=== PATIENT | male | born 1960 | race Caucasian/White ===

== ENCOUNTER 2018-08-24 06:45 | Inpatient (IN) ==
[2018-08-24] MEDS ORDERED: Sod Chloride 0.9% Inj 1,000 ML IV.SIG ONE (07:22)
--- NOTE | 2018-08-24 07:28 | ED ---
HPI General Chief Complaint: Abdominal Pain Stated Complaint: poss fever, abd pain Time Seen by Provider: 08/24/18 07:13 Source: patient Mode of arrival: ambulatory Limitations: no limitations History of Present Illness HPI narrative: The patient is a 58-year-old male with no past medical history presented with complaint of lower abdominal pain that started 4 days ago. MD complaint: Reports abdominal pain Onset (ago): day(s) (4) Pain Consistency: constant Location: Reports LLQ, RLQ and suprapubic Severity: mild Severity scale (1-10): 4 Quality: Reports aching Radiation: Reports none Migration to: Reports LLQ and RLQ Relieving factors: nothing Exacerbating factors: bowel movement Context: Denies foreign travel, possible food poisoning, sick contacts, recent antibiotic use, recent surgery/procedure, recent injury and history of similar episodes Associated symptoms: Reports nausea, diarrhea and chills; Denies vomiting, fever , constipation, dysuria, hematemesis, hematochezia, melena, hematuria, anorexia and syncope Related Data Home Medications Medication Instructions Recorded Confirmed No Known Home Medications 08/24/18 08/24/18 Allergies Allergy/AdvReac Type Severity Reaction Status Date / Time No Known Allergies Allergy Verified 08/24/18 07:21 Review of Systems ROS: all other systems reviewed are negative [facility] Medical History Medical History Patient denies medical problems (Acute) Surgical History Surgical History No history of previous surgery (Acute) Social History Social History Substance History: No History of Abuse Second Hand Smoke Exposure: No Smoking Status: Never smoker How Often Do You Have a Drink Containing Alcohol: Never Recent Travel in [facility] within the Last 8 Weeks: No Recent Out of Country Travel within the Last 8 Weeks: No Immunization History Tetanus Immunization: Unsure Exam Narrative Exam Narrative: GENERAL: Alert and oriented in no distress. Well-nourished well -developed SKIN: Focused skin assessment warm/dry. HEAD: Atraumatic. Normocephalic. EYES: Pupils equal and round. No scleral icterus. No injection or drainage. ENT: No nasal bleeding or discharge. Mucous membranes pink and moist. NECK: Trachea midline. No JVD. CARDIOVASCULAR: Regular rate and rhythm. No murmur appreciated. RESPIRATORY: No accessory muscle use. Clear to auscultation. Breath sounds equal bilaterally. GASTROINTESTINAL: Abdomen soft with tenderness to palpation over the left lower quadrant and right lower quadrant. Rebound tenderness on the right lower quadrant. Voluntary guarding. Normal bowel sounds., nondistended. Hepatic and splenic margins not palpable. MUSCULOSKELETAL: No obvious deformities. No clubbing. No cyanosis. No edema. NEUROLOGICAL: Awake and alert. No obvious cranial nerve deficits. Motor grossly within normal limits. Normal speech. PSYCHIATRIC: Appropriate mood and affect; insight and judgment normal. Course Initial Documented Vital Signs Temperature 98.5 F 08/24/18 07:00 Pulse Rate 109 H 08/24/18 07:00 Respiratory Rate 22 08/24/18 07:00 Blood Pressure 148/98 H 08/24/18 07:00 Pulse Oximetry 97 08/24/18 07:00 Last Documented Vital Signs Temperature 98.7 F 08/24/18 16:26 Pulse Rate 85 08/24/18 16:26 Respiratory Rate 16 08/24/18 16:26 Blood Pressure 161/84 H 08/24/18 16:26 Pulse Oximetry 98 08/24/18 16:26 Medical Decision Making MDM Narrative Medical decision making narrative: Patient with intractable abdominal pain and new findings of intra-abdominal mass. He was given IV pain meds and was admitted for further evaluation. No signs of obstruction Medical Screen Exam Complete: Yes Emergency Medical Condition: Yes Medical Records Medical records reviewed: Yes I reviewed the patient's medical records. Lab Data Lab results reviewed: Yes I reviewed the patient's lab results. Result diagrams: 08/24/18 07:30 08/24/18 07:30 Lab Results 08/24/18 08/24/18 08/24/18 Range/Units 07:30 07:30 07:30 WBC 7.2 (4.0-11.0) th/mm3 RBC 4.85 (4.50-5.90) mil/mm3 Hgb 14.1 (13.0-17.0) gm/dL Hct 42.5 (39.0-51.0) % MCV 87.6 (80.0-100.0) fL MCH 29.1 (27.0-34.0) pg MCHC 33.2 (32.0-36.0) % RDW 14.1 (11.6-17.2) % Plt Count 377 (150-450) th/mm3 MPV 7.3 (7.0-11.0) fL Neut % (Auto) 72.5 H (16.0-70.0) % Lymph % (Auto) 13.5 (9.0-44.0) % Jenkins % (Auto) 10.3 H (0.0-8.0) % Eos % (Auto) 2.3 (0.0-4.0) % Baso % (Auto) 1.4 (0.0-2.0) % Neut # (Auto) 5.2 (1.8-7.7) th/mm3 Lymph # (Auto) 1.0 (1.0-4.8) th/mm3 Jenkins # (Auto) 0.7 (0.0-0.9) th/mm3 Eos # (Auto) 0.2 (0.0-0.4) th/mm3 Baso # (Auto) 0.1 (0.0-0.2) th/mm3 WBC Differential . Differential Comment Auto diff final Sodium 137 (136-145) meq/L Potassium 4.2 (3.5-5.1) meq/L Chloride 103 (98-107) meq/L Carbon Dioxide 27.1 (21.0-32.0) meq/L Anion Gap 7 (5-15) meq/L BUN 15 (7-18) mg/dL Creatinine 1.07 (0.60-1.30) mg/dL Estimated GFR 71 L (>89) mL/min Random Glucose 114 H (74-106) mg/dL Lactic Acid 0.9 (0.4-2.0) mmol/L Calcium 9.4 (8.5-10.1) mg/dL Total Bilirubin 0.8 (0.2-1.0) mg/dL AST 55 H (15-37) U/L ALT 51 (12-78) U/L Alkaline Phosphatase 115 (45-117) U/L Total Protein 8.4 H (6.4-8.2) g/dL Albumin 3.3 L (3.4-5.0) g/dL Lipase 93 (73-393) U/L Urine Color (Yellw/Straw) Urine Clarity (Clear) Urine pH (5.0-8.5) Ur Specific [place] (1.002-1.035) Urine Protein (Neg-Trace) mg/dL Urine Glucose (UA) (Negative) mg/dL Urine Ketones (Negative) mg/dL Urine Occult Blood (Negative) Urine Nitrate (Negative) Urine Bilirubin (Negative) Urine Urobilinogen (Less than 2) mg/dL Ur Leukocyte Esterase (Negative) Urine RBC (0-3) /hpf Urine WBC (0-5) /hpf Urine Mucus (Occasional) /lpf Micro UA Comment Ur Microscopic Review Urine Culture Comments 08/24/18 Range/Units 07:40 WBC (4.0-11.0) th/mm3 RBC (4.50-5.90) mil/mm3 Hgb (13.0-17.0) gm/dL Hct (39.0-51.0) % MCV (80.0-100.0) fL MCH (27.0-34.0) pg MCHC (32.0-36.0) % RDW (11.6-17.2) % Plt Count (150-450) th/mm3 MPV (7.0-11.0) fL Neut % (Auto) (16.0-70.0) % Lymph % (Auto) (9.0-44.0) % Jenkins % (Auto) (0.0-8.0) % Eos % (Auto) (0.0-4.0) % Baso % (Auto) (0.0-2.0) % Neut # (Auto) (1.8-7.7) th/mm3 Lymph # (Auto) (1.0-4.8) th/mm3 Jenkins # (Auto) (0.0-0.9) th/mm3 Eos # (Auto) (0.0-0.4) th/mm3 Baso # (Auto) (0.0-0.2) th/mm3 WBC Differential Differential Comment Sodium (136-145) meq/L Potassium (3.5-5.1) meq/L Chloride (98-107) meq/L Carbon Dioxide (21.0-32.0) meq/L Anion Gap (5-15) meq/L BUN (7-18) mg/dL Creatinine (0.60-1.30) mg/dL Estimated GFR (>89) mL/min Random Glucose (74-106) mg/dL Lactic Acid (0.4-2.0) mmol/L Calcium (8.5-10.1) mg/dL Total Bilirubin (0.2-1.0) mg/dL AST (15-37) U/L ALT (12-78) U/L Alkaline Phosphatase (45-117) U/L Total Protein (6.4-8.2) g/dL Albumin (3.4-5.0) g/dL Lipase (73-393) U/L Urine Color Yellow (Yellw/Straw) Urine Clarity Clear (Clear) Urine pH 6.0 (5.0-8.5) Ur Specific [place] 1.015 (1.002-1.035) Urine Protein Negative (Neg-Trace) mg/dL Urine Glucose (UA) Negative (Negative) mg/dL Urine Ketones Negative (Negative) mg/dL Urine Occult Blood Negative (Negative) Urine Nitrate Negative (Negative) Urine Bilirubin Negative (Negative) Urine Urobilinogen Less than 2 (Less than 2) mg/dL Ur Leukocyte Esterase Negative (Negative) Urine RBC Less than 1 (0-3) /hpf Urine WBC Less than 1 (0-5) /hpf Urine Mucus Few H (Occasional) /lpf Micro UA Comment Culture not ind Ur Microscopic Review Not Reportable Urine Culture Comments Culture not ind Imaging Data Radiologist's impression: Abdomen/Pelvis CT 08/24/18 07:22 CONCLUSION: 1. Segmental concentric wall thickening of the mid sigmoid colon with a large 8 cm exophytic mass extending into the mesentery and loss of clear tissue plane between the sigmoid colon and the superior bladder dome. 2. 15 mm local regional lymph node adjacent mesentery. 3. Small hepatic hypodensities which are too small to characterize. Further characterization with MRI may be helpful for further staging. 4. Large calcified gallstone. 5. Above findings are suspicious for colon carcinoma stage III-B which indicates extraluminal invasion with possible involvement of the bladder and local regional lymphadenopathy. Discharge Plan Discharge Disposition Patient Disposition: 30 Still Patient Discharge Condition Condition: Good Discharge Details Diagnosis: Colonic mass, Intractable abdominal pain, Accelerated hypertension Physicians Team ED Provider: Wyatt Medel Primary Care Provider: Primary Care Physici,No Attending Provider: German Taylor Other Providers: Heidy Jauregui ; Damien Escobar Discharge Interventions Interventions: ED Discharge Assessment Last Done: 08/24/18 15:48 Status ED Status: Left Department Discharge Information Discharge Date/Time: 08/24/18 15:49
[2018-08-24 07:43] LABS: Baso # (Auto) 0.1 th/mm3 (0.0-0.2); Baso % (Auto) 1.4 % (0.0-2.0); Eos # (Auto) 0.2 th/mm3 (0.0-0.4); Eos % (Auto) 2.3 % (0.0-4.0); Hematocrit 42.5 % (39.0-51.0); Hemoglobin 14.1 gm/dL (13.0-17.0); Lymph % (Auto) 13.5 % (9.0-44.0); Mean Corpuscular HGB Conc 33.2 % (32.0-36.0); Mean Corpuscular Hemoglobin 29.1 pg (27.0-34.0); Mean Corpuscular Volume 87.6 fL (80.0-100.0); Mean Platelet Volume 7.3 fL (7.0-11.0); Mono # (Auto) 0.7 th/mm3 (0.0-0.9); Mono % (Auto) 10.3 % (0.0-8.0); Neut # (Auto) 5.2 th/mm3 (1.8-7.7); Neut % (Auto) 72.5 % (16.0-70.0); Platelet Count 377 th/mm3 (150-450); Red Blood Count 4.85 mil/mm3 (4.50-5.90); Red Cell Distribution Width 14.1 % (11.6-17.2); White Blood Count 7.2 th/mm3 (4.0-11.0)
[2018-08-24 07:58] LABS: Bilirubin,Urine Negative (Negative); Clarity,Urine Clear (Clear); Color,Urine Yellow (Yellw/Straw); Glucose,Urine (UA) Negative (Negative); Leukocyte Esterase,Urine Negative (Negative); Mucus,Urine Few /lpf (Occasional); Nitrite,Urine Negative (Negative); Specific Gravity,Urine 1.015 (1.002-1.035)
[2018-08-24 08:02] LABS: Alanine Aminotransferase 51 U/L (12-78); Albumin 3.3 g/dL (3.4-5.0); Anion Gap 7 meq/L (5-15); Aspartate Aminotransferase 55 U/L (15-37); Blood Urea Nitrogen 15 mg/dL (7-18); Calcium 9.4 mg/dL (8.5-10.1); Carbon Dioxide 27.1 meq/L (21.0-32.0); Chloride 103 meq/L (98-107); Glomerular Filtration Rate 71 mL/min (>89); Glucose,Random 114 mg/dL (74-106); Lipase 93 U/L (73-393); Potassium 4.2 meq/L (3.5-5.1); Sodium 137 meq/L (136-145)
[2018-08-24 08:05] LABS: Alkaline Phosphatase 115 U/L (45-117); Total Protein 8.4 g/dL (6.4-8.2)
--- NOTE | 2018-08-24 09:27 | CT ---
EXAM DATE: 08/24/2018 9:03 AM EST AGE/SEX: 58 years / Male INDICATIONS: Abdomen pain right lower quadrant with nausea. CLINICAL DATA: This is the patient's initial encounter. Patient reports that signs and symptoms have been present for 1 day and indicates a pain score of 3/10. MEDICAL/SURGICAL HISTORY: None. None. ORAL CONTRAST: No oral contrast ingested. RADIATION DOSE: 15.81 CTDI (mGy) COMPARISON: No prior exams available for comparison. TECHNIQUE: Multiple contiguous axial images were obtained through the abdomen and pelvis following b olus infusion of 98 ml Omnipaque 350 (iohexol) nonionic water-soluble contrast as a single exam dos e. No oral contrast ingested. Using automated exposure control and adjustment of the mA and/or kV ac cording to patient size, radiation dose was kept as low as reasonably achievable to obtain optimal di agnostic quality images. DICOM format image data is available electronically for review and comparis on. FINDINGS: Lower Lungs: The visualized lower lungs are clear. Liver: Absence of the left hepatic lobe is noted. The right hepatic lobe contains 2 small hypodense n odules. There is an 11 mm nodule in posterior subcapsular region along the border of the sixth and s eventh segments. The second nodule is subcentimeter in size and is located in the lower portion of se gment 8 adjacent to the gallbladder fossa. There is no evidence of biliary duct dilatation. Large calcified gallstone measuring 2.9 cm is noted. Spleen: Homogeneous density without enlargement. Pancreas: Unremarkable without mass or calcification. Kidneys: Normal in size and shape. No evidence of mass or hydronephrosis. Adrenal Glands: Unremarkable. Aorta: The aorta and proximal iliac vessels are grossly unremarkable without aneurysmal dilation. Bowel/Mesentery: A solid mesenteric mass measures 6.3 x 8.2 x 8.5 cm in size is identified centrally in the mid upper pelvis. The mass is contiguous with the mid sigmoid colon. The sigmoid colon contig uous with the mass demonstrates concentric lobulated wall thickening and pericolonic stranding. The t hickening is segmental extending from the proximal sigmoid to the mid sigmoid colon. In addition ther e are recent mesenteric lymph nodes ranging in size up to 15 mm. There is no evidence of proximal obstruction. No other focal intestinal abnormalities are identified. Abdominal Wall: Intact. Retroperitoneum: No evidence of adenopathy in the retrocrural, para-aortic, or deep pelvic regions. Bladder: Along the left superior dome of the bladder there is pericolonic vesicular stranding which extends to the segmental sigmoid mass. There are no intrinsic bladder abnormalities. Reproductive Organs: No abnormal masses or calcifications seen. Inguinal: The inguinal region is unremarkable without evidence of adenopathy. Bony Structures: Unremarkable. CONCLUSION: 1. Segmental concentric wall thickening of the mid sigmoid colon with a large 8 cm exophytic mass ex tending into the mesentery and loss of clear tissue plane between the sigmoid colon and the superior bladder dome. 2. 15 mm local regional lymph node adjacent mesentery. 3. Small hepatic hypodensities which are too small to characterize. Further characterization with MR I may be helpful for further staging. 4. Large calcified gallstone. 5. Above findings are suspicious for colon carcinoma stage III-B which indicates extraluminal invasi on with possible involvement of the bladder and local regional lymphadenopathy. Electronically signed by: Aleksey Cunningham MD 08/24/2018 9:25 AM EST
[2018-08-24] MEDS ORDERED: Morphine Inj 4 MG/ML Vial IV.PUSH ONE (11:46)
[2018-08-24] MEDS ORDERED: Acetaminophen 325 MG Tablet PO PRN (13:19)
[2018-08-24] MEDS ORDERED: Morphine Inj 4 MG/ML Vial IV.PUSH PRN (13:24)
[2018-08-24] MEDS ORDERED: Enoxaparin Inj 30 MG/0.3 ML Syringe SQ SCH (13:30)
[2018-08-24] MEDS: Sod Chloride 0.9% Inj 1,000 ML IV.CONT SCH (14:50)
--- NOTE | 2018-08-24 16:17 | P.HPIM ---
History of Present Illness Primary Care Physician: Dr. Syed Castellon Chief Complaint: Abdominal pain History of Present Illness: Mr. Trivedi is a pleasant 58 y/o male without significant past medical hx. He presented to the ED at [facility] on 08/24/18 with complaints of abdominal pain. He states that Thursday he started having some chills, subjective fevers, and abdominal cramping. This continued intermittently over the next two days with some occasional nausea but no vomiting. He got up to go to work this morning but felt worse with increased abd cramping and bloating. He reports that he has been having loose to soft stools for some time. No noted melena or BRBPR. No pain with defecation but he occasionally feels some constipation prior to having a BM but the stools are usually soft. In the ED pt had a CT Abd/pelvis which revealed segmental concentric wall thickening of the mid sigmoid colon with a large 8 cm exophytic mass extending into the mesentery and loss of clear tissue plane between the sigmoid colon and the superior bladder dome, 15 mm local regional lymph node adjacent mesentery, small hepatic hypodensities which are too small to characterize, and a large calcified gallstone. Pt is being admitted for Oncology and GI evaluation. Past Medical Hx: No known medical problems Past Surgical Hx: None Family Hx: Sister with hx of colon cancer dx in her 30's Social Hx: Denies any alcohol or tobacco use He is exposed to second hand smoke Pt reports that he works for [employer] He has two brothers that are physicians, one is a General Surgeon in [place], another is a Custom Van Converter in [place]. Diagnosis (1) Colonic mass: Medications and Allergies Allergies Allergy/AdvReac Type Severity Reaction Status Date / Time No Known Allergies Allergy Verified 08/24/18 07:21 Home Medications Medication Instructions Recorded Confirmed Type No Known Home Medications 08/24/18 08/24/18 History Active Medications: Active Medications Acetaminophen (Tylenol) 650 mg PO Q4H PRN PRN Reason: Temp > 100.4 Enoxaparin Sodium (Lovenox Inj) 30 mg SQ Q24H [facility] Last Admin: 08/24/18 14:50 Dose: 30 mg Sodium Chloride (Ns Inj) 1,000 mls @ 100 mls/hr IV.CONT .Q10H [facility] Last Admin: 08/24/18 14:50 Dose: 100 mls/hr Morphine Sulfate (Morphine Inj) 4 mg IV.PUSH Q4H PRN PRN Reason: pain 2-10 Ondansetron HCl (Zofran Inj) 4 mg IV.PUSH Q6H PRN PRN Reason: NAUSEA OR VOMITING Physical Exam Vital signs: Last Vital Signs Temp 98.5 F 08/24/18 07:00 Pulse 87 08/24/18 14:51 Resp 18 08/24/18 14:51 BP 139/80 08/24/18 14:51 Pulse Ox 96 08/24/18 14:51 Narrative: GENERAL: NAD, AAOx3 SKIN: Warm and dry. HEENT: Atraumatic. Normocephalic. Pupils equal and round. No scleral icterus. No injection or drainage. No nasal bleeding or discharge. Mucous membranes pink and moist. NECK: Trachea midline. No JVD. CARDIO: Regular rate and rhythm. RESP: CTA bilaterally. ABD: +BS, soft, non-tender, nondistended. Hepatic and splenic margins not palpable. EXT: Extremities without clubbing, cyanosis, or edema. No obvious deformities. NEURO: Awake and alert. No obvious cranial nerve deficits. Motor grossly within normal limits. Five out of 5 muscle strength in the arms and legs. Normal speech. PSYCH: Appropriate mood and affect; insight and judgment normal. Results Labs CBC & Chem 7: 08/24/18 07:30 08/24/18 07:30 Imaging Abdomen/Pelvis CT 08/24/18 07:22 CONCLUSION: 1. Segmental concentric wall thickening of the mid sigmoid colon with a large 8 cm exophytic mass extending into the mesentery and loss of clear tissue plane between the sigmoid colon and the superior bladder dome. 2. 15 mm local regional lymph node adjacent mesentery. 3. Small hepatic hypodensities which are too small to characterize. Further characterization with MRI may be helpful for further staging. 4. Large calcified gallstone. 5. Above findings are suspicious for colon carcinoma stage III-B which indicates extraluminal invasion with possible involvement of the bladder and local regional lymphadenopathy. Caprini VTE Risk Assessment Caprini VTE Risk Assessment: Moderate/High Risk (score >= 2) Caprini Risk Assessment Model: Point Value = 1 Point Value = 2 Point Value = 3 Point Value = 5 Age 41-60 Minor surgery BMI > 25 kg/m2 Swollen legs Varicose veins or History of unexplained or recurrent spontaneous Oral contraceptives or hormone replacement Sepsis (< 1 month) Serious lung disease, including pneumonia (< 1 month) Abnormal pulmonary function Acute myocardial infarction Congestive heart failure (< 1 month) History of inflammatory bowel disease Medical patient at bed rest Age 61-74 Arthroscopic surgery Major open surgery (> 45 min) Laparoscopic surgery (> 45 min) Malignancy Confined to bed (> 72 hours) Immobilizing plaster cast Central venous access Age >= 75 History of VTE Family history of VTE Factor V Leiden Prothrombin [id number] Lupus anticoagulant Anticardiolipin antibodies Elevated serum homocysteine Heparin-induced thrombocytopenia Other congenital or acquired thrombophilia Stroke (< 1 month) Elective arthroplasty Hip, pelvis, or leg fracture Acute spinal cord injury (< 1 month) Prophylaxis Regimen: Total Risk Factor Score Risk Level Prophylaxis Regimen 0-1 Low Early ambulation 2 Moderate Order ONE of the following: *Sequential Compression Device (SCD) *Heparin 5000 units SQ BID 3-4 Higher Order ONE of the following medications: *Heparin 5000 units SQ TID *Enoxaparin/Lovenox 40 mg SQ daily (WT < 150 kg, CrCl > 30 mL/min) *Enoxaparin/Lovenox 30 mg SQ daily (WT < 150 kg, CrCl > 10-29 mL/min) *Enoxaparin/Lovenox 30 mg SQ BID (WT < 150 kg, CrCl > 30 mL/min) AND/OR *Sequential Compression Device (SCD) 5 or more Highest Order ONE of the following medications: *Heparin 5000 units SQ TID (Preferred with Epidurals) *Enoxaparin/Lovenox 40 mg SQ daily (WT < 150 kg, CrCl > 30 mL/min) *Enoxaparin/Lovenox 30 mg SQ daily (WT < 150 kg, CrCl > 10-29 mL/min) *Enoxaparin/Lovenox 30 mg SQ BID (WT < 150 kg, CrCl > 30 mL/min) AND *Sequential Compression Device (SCD) Assessment and Plan Assessment (1) Colonic mass: Code(s): K63.9 - Disease of intestine, unspecified Status: Acute Plan Colonic mass Liver nodule - Pt is a 58 y/o male without significant past medical hx. - He presented to the ED at [facility] on 08/24/18 with complaints of abdominal pain. He states that Thursday he started having some chills, subjective fevers, and abdominal cramping. This continued intermittently over the next two days with some occasional nausea but no vomiting. He got up to go to work this morning but felt worse with increased abd cramping and bloating. He reports that he has been having loose to soft stools for some time. No noted melena or BRBPR. No pain with defecation but he occasionally feels some constipation prior to having a BM but the stools are usually soft. - CT Abd/pelvis (08/24/18) --> segmental concentric wall thickening of the mid sigmoid colon with a large 8 cm exophytic mass extending into the mesentery and loss of clear tissue plane between the sigmoid colon and the superior bladder dome, 15 mm local regional lymph node adjacent mesentery, small hepatic hypodensities which are too small to characterize, and a large calcified gallstone. - Oncology has been consulted - GI consultation is placed - Pt is on clear liquids for now - IVF - Zofran PRN - Morphine PRN pain - Clonidine PRN for any elevated BP - Pts assigned [facility] PCP is Dr. Syed Castellon but pt has not been seen by him in the past and generally has not had regular medical care. - In light of the CT scan findings and given his family hx of his sister being diagnosed with colon cancer in her 30's the concern for the patient having colon cancer, possibly stage III. - Discussed the case and CT findings with the pt and his brother, Yosef Trivedi , who is a General Surgeon in [place]. - Supportive care - Further recommendations as the case develops - DVT prophylaxis with Lovenox and SCDs Attending Attestation Patient examined. Assessment and plan formulated with Shannan Roe PA-C. I agree with the above. discussed with pt and his son a general surgeon in [place] concern for colorectal ca. GI consulted for colonoscopy. oncology consulted. IVF. liquid diet for now.
--- NOTE | 2018-08-24 18:49 | MB ---
cc: Damien Escobar MD DATE: 08/24/2018 ATTENDING PHYSICIAN: German Taylor MD REASON FOR CONSULTATION: Oncology consult to render an opinion regarding a patient with newly noted abdominal mass. HISTORY OF PRESENT ILLNESS: The patient is a very pleasant 58-year-old male with no previous medical history, who presented to the emergency room complaining of increased abdominal pain. This past Thursday, he was having some subjective fever and chills. He thought he caught a virus. The next day, he started having increased abdominal cramps. He was also having nausea without emesis. The pain was progressively getting worse and he decided to come to the emergency room. He has been having loose stool and more frequent stool over the last week. He denies any melena or hematochezia. He denies any weight loss. He has no chest pain or palpitation. He has no shortness of breath or cough. He denies any dysuria or hematuria. He has a sister diagnosed with colon cancer in her 30s. PAST MEDICAL HISTORY: He denies any coronary artery disease or any significant past medical history. PAST SURGICAL HISTORY: None. FAMILY HISTORY: Sister diagnosed with colon cancer in her 30s. He has 2 sisters and 2 brothers. The rest are healthy. SOCIAL HISTORY: He denies tobacco and alcohol use. He works for the [employer]. ALLERGIES: NO KNOWN DRUG ALLERGIES. OUTPATIENT MEDICATIONS: None. PHYSICAL EXAMINATION: VITAL SIGNS: Temperature 98.7, blood pressure 161/84. O2 saturation 98%. GENERAL: He is alert, oriented x3, no acute distress. HEENT: Atraumatic, normocephalic. Pupils are equal, round, and reactive to light. Extraocular muscles are intact. No scleral icterus. Oropharynx: Dry mucosa. No lesion. No thrush. No mucositis. NECK: No thyromegaly. No palpable mass. LYMPHATIC: No palpable cervical, clavicular, axillary or inguinal lymph nodes. CARDIOVASCULAR: Regular S1, S2. No murmur. LUNGS: Clear to auscultation bilaterally. No wheeze or rhonchi. ABDOMEN: Soft, a little tender in the left lower quadrant. No rebound or rigidity. Positive bowel sounds. EXTREMITIES: No cyanosis, clubbing or edema. BACK: No paravertebral tenderness. SKIN: No rash or petechiae. NEUROLOGIC: Nonfocal. LABORATORY DATA: CBC within normal limits. Creatinine 1.07, AST 55, ALT 51, alkaline phosphatase 115 and total bilirubin 0.8. ASSESSMENT: Abdominal mass worrisome for colon cancer. He was in his usual state of health until this past weekend when he started experiencing subjective fever and chills. He subsequently developed abdominal cramping and bloating. He has had more frequent loose stool over the last 1 week. He denies any melena or hematochezia. His hemoglobin is normal on presentation. He has not had a colonoscopy. He has a sister diagnosed with colon cancer in her 30s, but reportedly, she did not have any kind of genetic test. On presentation, a CT of the abdomen and pelvis showed segmental concentric wall thickening of the mid sigmoid colon with large 8 cm exophytic mass extending into the mesentery. There was a loss of tissue plane between sigmoid colon and the superior bladder dome. There was a 15 mm lymph node adjacent to the mesentery. There was also a small hepatic hypodensity, which is too small to characterize. This is a colon cancer until proven otherwise. Gastroenterology has been consulted. If indeed a colon mass, we will also need to consult colorectal surgeon to consider resection. I am going to get a CT of the lung to look for metastasis. We will check a tumor marker as well. Explained the workup to the patient and his questions were answered. RECOMMENDATIONS: 1. Extensive discussion with the patient as above. Arrange for CT of the chest. 2. Check tumor markers. 3. Await GI evaluation and colonoscopy. Will likely need to consult with colorectal surgeon for resection if colonoscopy confirm a colon mass. Thank you, Dr. Taylor, for asking me to see this patient. MD NIKKI Denton/silvana , 05:52 PM , 06:04 PM BOB
[2018-08-25] MEDS: Sod Chloride 0.9% Inj 1,000 ML IV.CONT SCH (00:59)
[2018-08-25 05:41] LABS: Baso # (Auto) 0.1 th/mm3 (0.0-0.2); Eos # (Auto) 0.3 th/mm3 (0.0-0.4); Eos % (Auto) 5.6 % (0.0-4.0); Hematocrit 38.7 % (39.0-51.0); Hemoglobin 13.3 gm/dL (13.0-17.0); Lymph # (Auto) 1.3 th/mm3 (1.0-4.8); Mean Corpuscular HGB Conc 34.5 % (32.0-36.0); Mean Corpuscular Hemoglobin 29.9 pg (27.0-34.0); Mean Corpuscular Volume 86.7 fL (80.0-100.0); Mono # (Auto) 0.7 th/mm3 (0.0-0.9); Mono % (Auto) 12.6 % (0.0-8.0); Neut # (Auto) 3.4 th/mm3 (1.8-7.7); Neut % (Auto) 57.8 % (16.0-70.0); Platelet Count 365 th/mm3 (150-450); Red Blood Count 4.46 mil/mm3 (4.50-5.90); Red Cell Distribution Width 13.8 % (11.6-17.2); White Blood Count 5.9 th/mm3 (4.0-11.0)
[2018-08-25 06:02] LABS: Alanine Aminotransferase 42 U/L (12-78); Albumin 3.2 g/dL (3.4-5.0); Alkaline Phosphatase 108 U/L (45-117); Alpha Fetoprotein Tumor Marker 1.2 ng/mL (0.5-8.0); Anion Gap 8 meq/L (5-15); Aspartate Aminotransferase 36 U/L (15-37); Blood Urea Nitrogen 12 mg/dL (7-18); Calcium 8.4 mg/dL (8.5-10.1); Carbon Dioxide 29.8 meq/L (21.0-32.0); Carcinoembryonic Antigen 16.6 ng/mL (0.2-5.0); Chloride 103 meq/L (98-107); Glomerular Filtration Rate 79 mL/min (>89); Glucose,Random 89 mg/dL (74-106); Potassium 4.2 meq/L (3.5-5.1); Sodium 141 meq/L (136-145); Total Protein 7.4 g/dL (6.4-8.2)
[2018-08-25 06:08] LABS: INR 1.1 Ratio; Prothrombin Time 10.7 sec (9.8-11.6)
--- NOTE | 2018-08-25 09:33 | CT ---
EXAM DATE: 08/25/2018 9:21 AM EST AGE/SEX: 58 years / Male INDICATIONS: Newly diagnosed colonic mass. Evaluate for metastatic disease. CLINICAL DATA: This is the patient's initial encounter. Patient reports that signs and symptoms have been present for 1 day and indicates a pain score of 0/10. MEDICAL/SURGICAL HISTORY: None. None. RADIATION DOSE: 16.51 CTDI (mGy) COMPARISON: No prior exams available for comparison. TECHNIQUE: Multiple contiguous axial images were obtained through the chest during bolus infusion of 69 ml Omnipaque 350 (iohexol) nonionic water-soluble contrast as a single exam dose. Images were obtained in suspended respiration using multiple row detector helical technique. Using automated exp osure control and adjustment of the mA and/or kV according to patient size, radiation dose was kept a s low as reasonably achievable to obtain optimal diagnostic quality images. DICOM format image data is available electronically for review and comparison. FINDINGS: Lungs: The lungs are symmetrically aerated. No infiltrates or nodular densities are seen. Mediastinum: There is good visualization of the great vessels of the middle mediastinum. No evidenc e of mediastinal or hilar adenopathy/mass. Pleurae: No evidence of focal thickening or pleural effusion. Axillae: Unremarkable. Bony Structures: A degenerative thoracic spine.. Miscellaneous: See the CT of the abdomen and pelvis separately. CONCLUSION: 1. No acute abnormality. 2. No CT evidence to suggest metastatic disease to the chest. Electronically signed by: Burton Soto MD 08/25/2018 9:31 AM EST
--- NOTE | 2018-08-25 11:49 | P.PNIM ---
Subjective Interval history: Patient laying in bed reports that he feels better today - passing small amount of liquid stool mixed with gas tolerating clear liquid diet Physical Exam Vital signs: Last Vital Signs Temp 98.1 F 08/25/18 08:00 Pulse 83 08/25/18 08:00 Resp 18 08/25/18 08:00 BP 163/90 H 08/25/18 08:00 Pulse Ox 98 08/25/18 08:00 Narrative: GENERAL: NAD, AAOx3 CARDIO: Regular rate and rhythm. RESP: CTA bilaterally. ABD: +BS, soft, non-tender, nondistended. Hepatic and splenic margins not palpable. EXT: Extremities without clubbing, cyanosis, or edema. No obvious deformities. NEURO: Awake and alert. No obvious cranial nerve deficits. Motor grossly within normal limits. Five out of 5 muscle strength in the arms and legs. Normal speech. PSYCH: Appropriate mood and affect; insight and judgment normal. Results Labs CBC & Chem 7: 08/25/18 03:45 08/25/18 03:45 Assessment and Plan Assessment (1) Colonic mass: Code(s): K63.9 - Disease of intestine, unspecified Status: Acute Plan Colonic mass Liver nodule - Pt is a 58 y/o male without significant past medical hx. - He presented to the ED at [facility] [place] on 08/24/18 with complaints of abdominal pain. He states that Thursday he started having some chills, subjective fevers, and abdominal cramping. This continued intermittently over the next two days with some occasional nausea but no vomiting. He got up to go to work this morning but felt worse with increased abd cramping and bloating. He reports that he has been having loose to soft stools for some time. No noted melena or BRBPR. No pain with defecation but he occasionally feels some constipation prior to having a BM but the stools are usually soft. - CT Abd/pelvis (08/24/18) --> segmental concentric wall thickening of the mid sigmoid colon with a large 8 cm exophytic mass extending into the mesentery and loss of clear tissue plane between the sigmoid colon and the superior bladder dome, 15 mm local regional lymph node adjacent mesentery, small hepatic hypodensities which are too small to characterize, and a large calcified gallstone. - Oncology has been consulted - GI consultation cancelled - Pt is on clear liquids for now - IVF - Zofran PRN - Morphine PRN pain - Clonidine PRN for any elevated BP - Pts assigned [facility] PCP is Dr. Syed Castellon but pt has not been seen by him in the past and generally has not had regular medical care. - In light of the CT scan findings and given his family hx of his sister being diagnosed with colon cancer in her 30's the concern for the patient having colon cancer, possibly stage III. - Discussed the case and CT findings with the pt and his brother, Yosef Trivedi , who is a General Surgeon in [place]. - placed consult to colorectal surgery Dr. Bright. Dr. Taylor spoke with Dr. Bright who will see patient today and do colonoscopy today also - patient NPO for colonoscopy - tap water enema x2 ordered - discussed plan with patient and he agrees - Supportive care - Further recommendations as the case develops - DVT prophylaxis with Lovenox and SCDs Attending Attestation Patient examined. Assessment and plan formulated with Katlin Ayers PA-C. I agree with the above. discussed with Dr Bright. will scope him this evening after enema. ivf and npo. if not obstructed then hopefully bx then dc home later today discussed with oncology dr Escobar...can f/u office. Progress Note: Quality VTE Deep Vein Thrombosis/Pulmonary Embolism Present on Admission: No
[2018-08-25] MEDS ORDERED: Sodium Chlor 0.9% Inj 500 ML IV.CONT ONE (12:00)
[2018-08-25] MEDS ORDERED: Metoprolol Tartrate 25 MG Tablet PO ONE (12:00)
[2018-08-25] MEDS ORDERED: Chlorhexidine Gluconate 2% 1 Pack (2 Cloths) TOPICAL ONE (12:00)
--- NOTE | 2018-08-25 15:30 | P.PNONC ---
Subjective Interval history: Patient still has abdominal bloating and pressure. He has no bowel movement. He has flatus. He has no chest pain or palpitation. He has no shortness of breath or cough. Objective Vital Signs/Intake & Output: Vital Signs 08/24/18 15:40 08/24/18 16:26 08/24/18 20:05 Temperature 98.7 F 98.7 F 98.5 F Pulse Rate 84 85 83 Respiratory Rate 19 16 20 Blood Pressure 154/90 H 161/84 H 138/85 Pulse Oximetry 97 98 98 08/25/18 00:20 08/25/18 03:50 08/25/18 08:00 Temperature 98.5 F 98.4 F 98.1 F Pulse Rate 83 80 83 Respiratory Rate 19 19 18 Blood Pressure 119/76 146/86 H 163/90 H Pulse Oximetry 96 96 98 08/25/18 12:00 08/25/18 12:58 Temperature 98.1 F 98.0 F Pulse Rate 94 H 82 Respiratory Rate 16 18 Blood Pressure 145/90 H 137/84 Pulse Oximetry 98 99 Intake & Output 08/24/18 08/25/18 08/25/18 18:59 06:59 18:59 Intake Total 1000 / 1000 1480 / 1480 100 / 100 Balance 1000 / 1000 1480 / 1480 100 / 100 Weight 96.7 kg 96.7 kg Intake: IV 1000 / 1000 1000 / 1000 NS Inj 1,000 ML @ 100 mls/hr IV 1000 / 1000 .CONT .Q10H [facility] Rx#:[id number] Oral 480 / 480 Anesthesia Amount 100 / 100 Other: # Voids 2 Weight On Admission 96.7 kg Result Diagrams: 08/25/18 03:45 08/25/18 03:45 Laboratory Results: Laboratory Results - last 24 hr 08/25/18 08/25/18 08/25/18 03:45 03:45 03:45 WBC 5.9 RBC 4.46 L Hgb 13.3 Hct 38.7 L MCV 86.7 MCH 29.9 MCHC 34.5 RDW 13.8 Plt Count 365 MPV 8.0 Neut % (Auto) 57.8 Lymph % (Auto) 22.0 [place] % (Auto) 12.6 H Eos % (Auto) 5.6 H Baso % (Auto) 2.0 Neut # (Auto) 3.4 Lymph # (Auto) 1.3 [place] # (Auto) 0.7 Eos # (Auto) 0.3 Baso # (Auto) 0.1 WBC Differential . Differential Comment Auto diff final PT 10.7 INR 1.1 Sodium 141 Potassium 4.2 Chloride 103 Carbon Dioxide 29.8 Anion Gap 8 BUN 12 Creatinine 0.98 Estimated GFR 79 L Random Glucose 89 Calcium 8.4 L D Total Bilirubin 1.0 AST 36 ALT 42 Alkaline Phosphatase 108 Total Protein 7.4 D Albumin 3.2 L Tumor Marker AFP 1.2 Carcinoembryonic Ag 16.6 H CA 19-9 Antigen 08/25/18 03:45 WBC RBC Hgb Hct MCV MCH MCHC RDW Plt Count MPV Neut % (Auto) Lymph % (Auto) [place] % (Auto) Eos % (Auto) Baso % (Auto) Neut # (Auto) Lymph # (Auto) [place] # (Auto) Eos # (Auto) Baso # (Auto) WBC Differential Differential Comment PT INR Sodium Potassium Chloride Carbon Dioxide Anion Gap BUN Creatinine Estimated GFR Random Glucose Calcium Total Bilirubin AST ALT Alkaline Phosphatase Total Protein Albumin Tumor Marker AFP Carcinoembryonic Ag CA 19-9 Antigen 66.8 H Culture Results: Microbiology 08/24/18 07:25 Aerobic Blood Culture - Preliminary Blood - Peripheral No growth in 1 day Anaerobic Blood Culture - Preliminary No growth in 1 day 08/24/18 07:30 Aerobic Blood Culture - Preliminary Blood - Peripheral No growth in 1 day Anaerobic Blood Culture - Preliminary No growth in 1 day Imaging Studies: Impressions Chest CT 08/25/18 00:00 CONCLUSION: 1. No acute abnormality. 2. No CT evidence to suggest metastatic disease to the chest. Medications: Active Medications Generic Name Dose Route Start Last Admin Trade Name Freq PRN Reason Stop Dose Admin Enoxaparin Sodium 30 mg 08/24/18 13:30 08/24/18 14:50 Lovenox Inj SQ 30 mg Q24H SADIA Administration Sodium Chloride 1,000 mls @ 60 mls/hr 08/24/18 13:30 08/25/18 00:59 Ns Inj IV.CONT 100 mls/hr .[id number] SADIA Administration Lactated Ringer's 1,000 mls @ 30 mls/hr 08/25/18 12:00 08/25/18 12:15 Lr 1000 Ml Inj IV.CONT 08/26/18 11:59 30 mls/hr .Q24H ONE Administration Objective Remarks: GENERAL: Well-nourished, well-developed patient. SKIN: Warm and dry. HEAD: Normocephalic. EYES: No scleral icterus. No injection or drainage. NECK: Supple, trachea midline. No JVD or lymphadenopathy. LYMPHATIC: No adenopathy. CARDIOVASCULAR: Regular rate and rhythm without murmurs. RESPIRATORY: Breath sounds equal bilaterally. No accessory muscle use. GASTROINTESTINAL: Abdomen soft, non-tender, nondistended. Slight tenderness in the lower abdomen. EXTREMITIES: No cyanosis, or edema. MUSCULOSKELETAL: Adequate muscle tone. NEUROLOGICAL: No obvious focal deficit. Awake, alert, and oriented x3. PSYCHIATRIC: Appropriate mood and affect; insight and judgment normal. Assessment/Plan (1) Intractable abdominal pain Code(s): R10.9 - Unspecified abdominal pain Status: Acute (2) Colonic mass Code(s): K63.9 - Disease of intestine, unspecified Status: Acute - Plan 1. Abdominal mass worrisome for colon cancer. He was in his usual state of health until this past weekend when he started experiencing subjective fever and chills. He subsequently developed abdominal cramping and bloating. He has had more frequent loose stool over the last 1 week. He denies any melena or hematochezia. His hemoglobin is normal on presentation. He has not had a colonoscopy. He has a sister diagnosed with colon cancer in her 30s, but reportedly, she did not have any kind of genetic test. On presentation, a CT of the abdomen and pelvis showed segmental concentric wall thickening of the mid sigmoid colon with large 8 cm exophytic mass extending into the mesentery. There was a loss of tissue plane between sigmoid colon and the superior bladder dome. There was a 15 mm lymph node adjacent to the mesentery. There was also a small hepatic hypodensity, which is too small to characterize. This is a colon cancer until proven otherwise. Gastroenterology has been consulted. If indeed a colon mass, we will also need to consult colorectal surgeon to consider resection. I am going to get a CT of the lung to look for metastasis. We will check a tumor marker as well. Explained the workup to the patient and his questions were answered. August 25: CT of the chest did not show any metastatic disease. CEA 16.6. CA 199 is 66.8. Clinical picture is consistent with colon cancer. RECOMMENDATIONS: 1. Colorectal surgery Dr. Bright has been consulted and will do colonoscopy. 2. Patient can be discharged if cleared by Dr. Bright. He can follow-up at oncology clinic after his surgery. Discussed with Dr. Taylor.
[2018-08-25] MEDS: Polyethylene Glycol 3350 17 GM Packet PO SCH (20:43)
--- NOTE | 2018-08-26 08:04 | P.PNONC ---
Subjective Interval history: Patient stated that he had GI scope yesterday. The report is not available yet. He is still passing gas. His abdominal pain has improved. Objective Vital Signs/Intake & Output: Vital Signs 08/25/18 12:00 08/25/18 12:58 08/25/18 16:00 Temperature 98.1 F 98.0 F 98.4 F Pulse Rate 94 H 82 89 Respiratory Rate 16 18 16 Blood Pressure 145/90 H 137/84 139/89 Pulse Oximetry 98 99 97 08/25/18 20:25 08/25/18 23:35 08/26/18 05:21 Temperature 98.4 F 98.6 F 97.2 F L Pulse Rate 88 88 82 Respiratory Rate 18 18 18 Blood Pressure 139/82 137/72 144/91 H Pulse Oximetry 97 96 97 Intake & Output 08/25/18 08/26/18 08/26/18 18:59 06:59 18:59 Intake Total 980 / 980 480 / 480 Balance 980 / 980 480 / 480 Weight 96.7 kg Intake: Oral 780 / 780 480 / 480 Anesthesia Amount 200 / 200 Other: # Voids 3 2 Date of Last Bowel Movement 08/25/18 # Bowel Movements 1 0 Result Diagrams: 08/25/18 03:45 08/25/18 03:45 Culture Results: Microbiology 08/24/18 07:25 Aerobic Blood Culture - Preliminary Blood - Peripheral No growth in 1 day Anaerobic Blood Culture - Preliminary No growth in 1 day 08/24/18 07:30 Aerobic Blood Culture - Preliminary Blood - Peripheral No growth in 1 day Anaerobic Blood Culture - Preliminary No growth in 1 day Imaging Studies: Impressions Chest CT 08/25/18 00:00 CONCLUSION: 1. No acute abnormality. 2. No CT evidence to suggest metastatic disease to the chest. Medications: Active Medications Generic Name Dose Route Start Last Admin Trade Name Freq PRN Reason Stop Dose Admin Enoxaparin Sodium 30 mg 08/24/18 13:30 08/24/18 14:50 Lovenox Inj SQ 30 mg Q24H SADIA Administration Sodium Chloride 1,000 mls @ 60 mls/hr 08/24/18 13:30 08/25/18 00:59 Ns Inj IV.CONT 100 mls/hr .[id number] SADIA Administration Lactated Ringer's 1,000 mls @ 30 mls/hr 08/25/18 12:00 08/25/18 12:15 Lr 1000 Ml Inj IV.CONT 08/26/18 11:59 30 mls/hr .Q24H ONE Administration Polyethylene Glycol 17 gm 08/25/18 21:00 08/25/18 20:43 Miralax PO 17 gm Q12HR SADIA Administration Objective Remarks: GENERAL: Well-nourished, well-developed patient. SKIN: Warm and dry. HEAD: Normocephalic. EYES: No scleral icterus. No injection or drainage. NECK: Supple, trachea midline. No JVD or lymphadenopathy. LYMPHATIC: No adenopathy. CARDIOVASCULAR: Regular rate and rhythm without murmurs. RESPIRATORY: Breath sounds equal bilaterally. No accessory muscle use. GASTROINTESTINAL: Abdomen soft, slight pressure in the abdomen, non-tender, nondistended. EXTREMITIES: No cyanosis, or edema. MUSCULOSKELETAL: Adequate muscle tone. NEUROLOGICAL: No obvious focal deficit. Awake, alert, and oriented x3. PSYCHIATRIC: Appropriate mood and affect; insight and judgment normal. Assessment/Plan (1) Intractable abdominal pain Code(s): R10.9 - Unspecified abdominal pain Status: Acute (2) Colonic mass Code(s): K63.9 - Disease of intestine, unspecified Status: Acute - Plan 1. Abdominal mass worrisome for colon cancer. He was in his usual state of health until this past weekend when he started experiencing subjective fever and chills. He subsequently developed abdominal cramping and bloating. He has had more frequent loose stool over the last 1 week. He denies any melena or hematochezia. His hemoglobin is normal on presentation. He has not had a colonoscopy. He has a sister diagnosed with colon cancer in her 30s, but reportedly, she did not have any kind of genetic test. On presentation, a CT of the abdomen and pelvis showed segmental concentric wall thickening of the mid sigmoid colon with large 8 cm exophytic mass extending into the mesentery. There was a loss of tissue plane between sigmoid colon and the superior bladder dome. There was a 15 mm lymph node adjacent to the mesentery. There was also a small hepatic hypodensity, which is too small to characterize. This is a colon cancer until proven otherwise. Gastroenterology has been consulted. If indeed a colon mass, we will also need to consult colorectal surgeon to consider resection. I am going to get a CT of the lung to look for metastasis. We will check a tumor marker as well. Explained the workup to the patient and his questions were answered. August 25: CT of the chest did not show any metastatic disease. CEA 16.6. CA 199 is 66.8. Clinical picture is consistent with colon cancer. August 26: Patient was seen by Dr. Bright yesterday and had GI scope which reportedly showed a tight lesion. Report is not available at this time. Patient stated that he is going to have surgical resection tomorrow. Patient is rather anxious and has many questions today which were answered. RECOMMENDATIONS: 1. Await colon resection tomorrow. 2. Further recommendation will depend on final pathology.
[2018-08-26] MEDS: Polyethylene Glycol 3350 17 GM Packet PO SCH ×4 (08:37→20:40)
[2018-08-26] MEDS ORDERED: Magnesium Citrate Liq 300 ML Bottle PO STA (09:25)
--- NOTE | 2018-08-26 09:29 | P.PNIM ---
Subjective Interval history: Patient sitting up in bed eating full liquid diet continues to pass flatus and small amounts of liquid stool patient reports he had colonoscopy yesterday and the surgeon is planning surgery this Thursday ? resection Physical Exam Vital signs: Last Vital Signs Temp 98.2 F 08/26/18 07:30 Pulse 87 08/26/18 07:30 Resp 19 08/26/18 07:30 BP 137/86 08/26/18 07:30 Pulse Ox 95 08/26/18 07:30 Narrative: GENERAL: NAD, AAOx3 CARDIO: Regular rate and rhythm. RESP: CTA bilaterally. ABD: +BS, soft, non-tender, nondistended. Hepatic and splenic margins not palpable. EXT: Extremities without clubbing, cyanosis, or edema. No obvious deformities. NEURO: Awake and alert. No obvious cranial nerve deficits. Motor grossly within normal limits. Five out of 5 muscle strength in the arms and legs. Normal speech. PSYCH: Appropriate mood and affect; insight and judgment normal. Results Labs CBC & Chem 7: 08/25/18 03:45 08/25/18 03:45 Assessment and Plan Assessment (1) Intractable abdominal pain: Code(s): R10.9 - Unspecified abdominal pain Status: Acute (2) Colonic mass: Code(s): K63.9 - Disease of intestine, unspecified Status: Acute Plan Colonic mass Liver nodule - Pt is a 58 y/o male without significant past medical hx. - He presented to the ED at [facility] [place] on 08/24/18 with complaints of abdominal pain. He states that Thursday he started having some chills, subjective fevers, and abdominal cramping. This continued intermittently over the next two days with some occasional nausea but no vomiting. He got up to go to work this morning but felt worse with increased abd cramping and bloating. He reports that he has been having loose to soft stools for some time. No noted melena or BRBPR. No pain with defecation but he occasionally feels some constipation prior to having a BM but the stools are usually soft. - CT Abd/pelvis (08/24/18) --> segmental concentric wall thickening of the mid sigmoid colon with a large 8 cm exophytic mass extending into the mesentery and loss of clear tissue plane between the sigmoid colon and the superior bladder dome, 15 mm local regional lymph node adjacent mesentery, small hepatic hypodensities which are too small to characterize, and a large calcified gallstone. - Oncology has been consulted - GI consultation cancelled - Pt is on clear liquids for now - IVF - Zofran PRN - Morphine PRN pain - Clonidine PRN for any elevated BP - Pts assigned [facility] PCP is Dr. Syed Castellon but pt has not been seen by him in the past and generally has not had regular medical care. - In light of the CT scan findings and given his family hx of his sister being diagnosed with colon cancer in her 30's the concern for the patient having colon cancer, possibly stage III. - Discussed the case and CT findings with the pt and his brother, Yosef Trivedi , who is a General Surgeon in [place]. - 08/25 placed consult to colorectal surgery Dr. Bright. Dr. Taylor spoke with Dr. Bright who will see patient today and do colonoscopy today also - discussed plan with patient and he agrees - 08/26 patient reports he had colonoscopy yesterday and the surgeon is planning surgery this Thursday ? resection - report not available yet - tolerating full liquid diet - Supportive care - Further recommendations as the case develops - DVT prophylaxis with Lovenox and SCDs Attending Attestation Patient examined. Assessment and plan formulated with Katlin Ayers PA-C. I agree with the above. Progress Note: Quality VTE Deep Vein Thrombosis/Pulmonary Embolism Present on Admission: No
--- NOTE | 2018-08-26 09:34 | P.PNCS ---
Subjective Interval history: Planning laparotomy tomorrow. Pt with no stools and minimal gas but not distended or uncomfortable. Tolerated FLD breakfast. Objective Result Diagrams: 08/25/18 03:45 08/25/18 03:45 Objective Remarks: Abd: flat, soft, not tender. Suprapubic mass with mild tenderness. 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 Answered questions. May need stents with possible bladder invasion. Will consult Urology Changed to CLD to eliminate grits etc. Will add Magnesium citrate since not distended. Urge clear liquids. Hopefully resectable. Will attempt anastamosis,but possible diversion depending on prep and findings.
[2018-08-26] MEDS ORDERED: KCL 20 mEq/D5W/LR Inj 1,000 ML IV.CONT SCH (11:00)
--- NOTE | 2018-08-26 12:54 | MR ---
cc: Kodak Bright MD, Andrew H MD DATE: 08/25/2018 PREOPERATIVE DIAGNOSES: 1. Abdominal pain. 2. Abnormal CAT scan with mass of the rectosigmoid. PROCEDURE: Limited colonoscopy. POSTOPERATIVE DIAGNOSIS: Obstructing carcinoma of the rectosigmoid. SURGEON: Kodak Bright MD DESCRIPTION OF PROCEDURE: The patient was placed in the left lateral decubitus position. Rectal exam confirmed emptiness of the rectal vault. The Pentax colonoscope was introduced into the rectum and advanced easily under direct vision through the rectum, rectosigmoid, at which point an obstructing carcinoma was seen. The lumen was very pinpoint and was not able to be passed easily even with the small colonoscope. It was obviously a cancer and ulceration and friability were pretty visible. The scope was therefore gradually withdrawn, noting normal mucosa throughout the distal rectosigmoid, and the rectum appeared unremarkable. The patient tolerated the procedure quite well and was brought to the recovery room in stable condition. Kodak Bright MD [facility]/[place] , 11:21 AM , 11:27 AM
--- NOTE | 2018-08-26 14:44 | MB ---
cc: Kodak Bright MD DATE: 08/25/2018 REASON FOR CONSULTATION: 1. Mass of the rectosigmoid, possible colon cancer. 2. Abdominal pain. 3. Family history of colon cancer. HISTORY OF PRESENT ILLNESS: Mr. Trivedi is a 58-year-old male who has had very little medical care over the last several years. He does have a sister who had colon cancer at a relatively young age. He presented to the ER at [place] on 08/24/2018 complaining of lower abdominal pain. Seemed to have abdominal gas and cramping. Got worse over the day or two prior to admission with decreased appetite and nausea, but denies any vomiting. The patient had increased amounts of abdominal cramping and bloating at work and came to the emergency room for this and evaluation. Stools have been a lot softer than usual. He does strain quite a bit, but notes no rectal bleeding or melena. Feels he is more constipated over the last several weeks. The patient has lost about 10-15 pounds over the last several months, despite what he considers a normal appetite. Since admission, he had a CAT scan in the emergency room showing a rather large complex mass, probably of the rectosigmoid with extension into the colonic mesentery. Liver had a couple of small densities, but no obvious metastatic disease. He did have 1 calcified gallstone. Consultation was obtained to further evaluate this colonic mass. Please see admitting history and physical and consultations for complete past medical and surgical history. PHYSICAL EXAMINATION: GENERAL: A very pleasant, well-developed male in no acute distress. HEENT: Remarkable for pink, dry membranes. Nonicteric sclerae. NECK: Supple without gross adenopathy. LUNGS: Relatively clear; symmetrical, expanding. HEART: Regular rhythm. ABDOMEN: Soft, a little doughy; some tenderness in the lower to mid abdomen. No rebound or guarding, but fullness. RECTAL: Anal inspection revealed benign canal. Digital exam revealed good tone with no masses or tenderness and no stool palpable. EXTREMITIES: No cyanosis or clubbing and minimal pedal edema. LABORATORY STUDIES: White count was 7.2, hemoglobin 14.1, platelet count 377,000. Electrolytes remarkable for BUN of 12, creatinine of 0.9, albumin of 3.2, a CEA level of 16.6. CA 19-9 is 66.8. IMAGING: CT scan was reviewed showing a rather large complex mass of the rectosigmoid with mesenteric extension and possible displacement of the bladder. Several small lesions in the liver were also noted. ASSESSMENT AND PLAN: A 58-year-old male with a family history of colon cancer. Never had a colonic evaluation or actually any recent medical care, presents with abdominal pain and CAT scan findings very concerning for a mass or cancer of the sigmoid colon with some mesenteric extension. Discussed the findings at length with the patient and his family. He was administered a couple of enemas the morning of admission and will be taken to the GI lab when available for a colonoscopy, but probably only a sigmoidoscopy due to the narrowing and obstruction apparent on the CT scan. Risks, benefits, alternatives were discussed and we will set up as soon as possible. MD NANDO Garvey/patrick , 02:21 PM , 02:31 PM
[2018-08-26] MEDS ORDERED: PEG 3350/E-Lyte Soln 4000 ML Bottle PO ONE (19:00)
[2018-08-27] MEDS ORDERED: Chlorhexidine Gluconate 2% 1 Pack (2 Cloths) TOPICAL ONE (03:37)
[2018-08-27] MEDS ORDERED: Sodium Chlor 0.9% Inj 500 ML IV.SIG SCH (04:00)
[2018-08-27] MEDS: Polyethylene Glycol 3350 17 GM Packet PO SCH ×3 (04:08→08:03)
--- NOTE | 2018-08-27 07:34 | ECG ---
Date Performed: 08/25/2018 Time Performed: 12:29:00 PTAGE: 58 years EKG: Sinus rhythm NORMAL ECG NO PREVIOUS TRACING DOCTOR: Neymar Rondon Interpretating Date/Time 08/27/2018 07:33:26
--- NOTE | 2018-08-27 09:30 | P.PNONC ---
Subjective Interval history: Patient denies any abdominal pain. He tolerated bowel prep. He is going for surgery this morning. Objective Vital Signs/Intake & Output: Vital Signs 08/26/18 12:00 08/26/18 15:50 08/26/18 19:50 Temperature 98.5 F 98.5 F 97.7 F Pulse Rate 97 H 93 H 86 Respiratory Rate 19 19 19 Blood Pressure 143/88 H 146/104 H 157/91 H Pulse Oximetry 95 97 96 08/26/18 23:28 08/27/18 03:47 08/27/18 08:00 Temperature 98.2 F 98.0 F 98.5 F Pulse Rate 92 H 87 83 Respiratory Rate 18 18 16 Blood Pressure 150/89 H 128/78 134/74 Pulse Oximetry 96 96 97 Intake & Output 08/26/18 08/27/18 08/27/18 18:59 06:59 18:59 Intake Total 0 / 0 Output Total 1501 / 1501 2440 / 2440 Balance -1501 / -1501 -2440 / -2440 Weight 96.7 kg Intake: Oral 0 / 0 Output: Urine 1500 / 1500 2440 / 2440 Stool 1 / 1 Other: # Voids 1 3 1 # Urine Diapers 1 Date of Last Bowel Movement 08/26/18 08/27/18 # Bowel Movements 1 2 Result Diagrams: 08/25/18 03:45 08/25/18 03:45 Laboratory Results: Laboratory Results - last 24 hr 08/26/18 14:43 Blood Type B Positive Blood Type Recheck Required Antibody Screen Negative Culture Results: Microbiology 08/24/18 07:25 Aerobic Blood Culture - Preliminary Blood - Peripheral No growth in 2 days Anaerobic Blood Culture - Preliminary No growth in 2 days 08/24/18 07:30 Aerobic Blood Culture - Preliminary Blood - Peripheral No growth in 2 days Anaerobic Blood Culture - Preliminary No growth in 2 days Medications: Active Medications Generic Name Dose Route Start Last Admin Trade Name Freq PRN Reason Stop Dose Admin Sodium Chloride 1,000 mls @ 60 mls/hr 08/24/18 13:30 08/25/18 00:59 Ns Inj IV.CONT 100 mls/hr .[id number] SADIA Administration Potassium Cl/Dextrose/Lact Ringer's 1,000 mls @ 100 mls/hr 08/26/18 11:00 12:25 D5w/Lr + Kcl 20 Meq Inj IV.CONT Not Given .Q10H SADIA Lactated Ringer's 1,000 mls @ 30 mls/hr 08/27/18 03:45 08/27/18 09:15 Lr 1000 Ml Inj IV.SIG 08/28/18 03:44 30 mls/hr .Q24H SADIA Administration Polyethylene Glycol 17 gm 08/26/18 12:00 08/27/18 08:03 Miralax PO Not Given Q4HR SADIA Objective Remarks: GENERAL: Well-nourished, well-developed patient. SKIN: Warm and dry. HEAD: Normocephalic. EYES: No scleral icterus. No injection or drainage. NECK: Supple, trachea midline. No JVD or lymphadenopathy. LYMPHATIC: No adenopathy. CARDIOVASCULAR: Regular rate and rhythm without murmurs. RESPIRATORY: Breath sounds equal bilaterally. No accessory muscle use. GASTROINTESTINAL: Abdomen soft, non-tender, nondistended. EXTREMITIES: No cyanosis, or edema. MUSCULOSKELETAL: Adequate muscle tone. NEUROLOGICAL: No obvious focal deficit. Awake, alert, and oriented x3. PSYCHIATRIC: Appropriate mood and affect; insight and judgment normal. Assessment/Plan (1) Intractable abdominal pain Code(s): R10.9 - Unspecified abdominal pain Status: Acute (2) Colonic mass Code(s): K63.9 - Disease of intestine, unspecified Status: Acute - Plan 1. Abdominal mass worrisome for colon cancer. He was in his usual state of health until this past weekend when he started experiencing subjective fever and chills. He subsequently developed abdominal cramping and bloating. He has had more frequent loose stool over the last 1 week. He denies any melena or hematochezia. His hemoglobin is normal on presentation. He has not had a colonoscopy. He has a sister diagnosed with colon cancer in her 30s, but reportedly, she did not have any kind of genetic test. On presentation, a CT of the abdomen and pelvis showed segmental concentric wall thickening of the mid sigmoid colon with large 8 cm exophytic mass extending into the mesentery. There was a loss of tissue plane between sigmoid colon and the superior bladder dome. There was a 15 mm lymph node adjacent to the mesentery. There was also a small hepatic hypodensity, which is too small to characterize. This is a colon cancer until proven otherwise. Gastroenterology has been consulted. If indeed a colon mass, we will also need to consult colorectal surgeon to consider resection. I am going to get a CT of the lung to look for metastasis. We will check a tumor marker as well. Explained the workup to the patient and his questions were answered. August 25: CT of the chest did not show any metastatic disease. CEA 16.6. CA 199 is 66.8. Clinical picture is consistent with colon cancer. August 26: Patient was seen by Dr. Bright yesterday and had GI scope which reportedly showed a tight lesion. Report is not available at this time. Patient stated that he is going to have surgical resection tomorrow. Patient is rather anxious and has many questions today which were answered. August 27: Patient is going to have surgery with Dr. Bright today. He is rather anxious and his questions were answered. I told him further recommendation will depend on final pathology and staging. RECOMMENDATIONS: 1. Patient going to OR for colon resection today. 2. Further recommendation will depend on final pathology.
--- NOTE | 2018-08-27 11:26 | P.OP ---
- Preoperative Diagnosis (1) Colonic mass - Postoperative Diagnosis (1) Meatal stenosis (2) Colonic mass Date of procedure: 08/27/18 Procedure: Urethral dilatation, cystoscopy with bilateral ureteral catheter insertion Anesthesia: GERALDINE Surgeon: Neel Manrique DO Estimated blood loss (mL): 0 Operation and Findings: 58-year-old male with sigmoid colon mass with possible invasion to the bladder elected undergo exploratory laparotomy by Dr. Bright and Dr. Owen. Requests were made for bilateral ureteral catheter placement. Patient was brought to the operating room and placed in dorsal lithotomy position. He was prepped draped in usual sterile fashion, received preprocedure antibiotics and general endotracheal tube anesthesia was administered. Initially, I was unable to pass the cystoscope into the urethral meatus using ureteral sounds, the meatus was dilated from an 18 Ghanaian up to a 24 Ghanaian. The 22 Ghanaian cystoscope was inserted in the bladder and canela cystoscopy did not show any invasion into the dome of the bladder by the sigmoid mass. Both ureteral orifices were identified. 5 Ghanaian open-ended catheters were inserted into both ureteral orifices and were passed up into the kidney without any difficulty bilaterally. A 16 Ghanaian Wagner catheter was inserted and the catheters were attached to the Wagner. The patient tolerated the procedure well.
[2018-08-27] MEDS ORDERED: Bupivacaine PF 0.5% Inj 30 ML Vial ONE ×3 (12:03→12:42)
[2018-08-27] MEDS ORDERED: Potassium Chlor 40 mEq Premix 40 MEQ/100 ML PIGGYBACK IV.SIG PRN (13:43)
[2018-08-27] MEDS ORDERED: Potassium Chlor 20 mEq Premix 20 MEQ/100 ML PIGGYBACK IV.SIG PRN (13:43)
[2018-08-27] MEDS ORDERED: Naloxone Inj 0.4 MG/ML Vial IV.PUSH PRN (13:43)
[2018-08-27] MEDS ORDERED: Ketorolac Inj 30 MG/ML (IVP) Vial IV.PUSH PRN (13:43)
[2018-08-27] MEDS ORDERED: *morphine SULFATE 10 MG/ML PERIprocedure ONLY ONE ×2 (13:59→14:16)
[2018-08-27] MEDS ORDERED: fentaNYL Citrate Inj 100 MCG/2 ML Ampul ONE (14:04)
[2018-08-27] MEDS ORDERED: Morphine Inj 30 MG/30 ML PCA.VIAL PCA ONE (14:15)
[2018-08-27] MEDS ORDERED: KCL 20 mEq/D5W/NaCl 0.9% Inj 1,000 ML ONE (14:15)
[2018-08-27] MEDS: KCL 20 mEq/D5W/NaCl 0.9% Inj 1,000 ML IV.CONT SCH ×2 (14:23→20:09)
[2018-08-27] MEDS ORDERED: ceFAZolin 1 GM Premix Inj 0 GM/0 ML FROZ.PIGGY IV.SIG ONE (14:33)
[2018-08-27] MEDS: Morphine Inj 30 MG/30 ML PCA.VIAL PCA PRN (14:35)
--- NOTE | 2018-08-27 17:47 | P.PNIM ---
Subjective Interval history: sleeping post procedure Physical Exam Vital signs: Last Vital Signs Temp 97.9 F 08/27/18 15:25 Pulse 102 H 08/27/18 17:01 Resp 20 08/27/18 15:25 BP 143/67 H 08/27/18 15:25 Pulse Ox 93 L 08/27/18 15:25 Narrative: Pt sleeping Results Labs CBC & Chem 7: 08/25/18 03:45 08/25/18 03:45 Assessment and Plan Assessment (1) Intractable abdominal pain: Code(s): R10.9 - Unspecified abdominal pain Status: Acute (2) Colonic mass: Code(s): K63.9 - Disease of intestine, unspecified Status: Acute Plan Colonic mass Liver nodule - Pt is a 58 y/o male without significant past medical hx. - [place] [facility] [place] with complaints of abdominal pain. He states that Thursday he started having some chills, subjective fevers, and abdominal cramping. This continued intermittently over the next two days with some occasional nausea but no vomiting. He got up to go to work this morning but felt worse with increased abd cramping and bloating. He reports that he has been having loose to soft stools for some time. No noted melena or BRBPR. No pain with defecation but he occasionally feels some constipation prior to having a BM but the stools are usually soft. - CT Abd/pelvis (08/24/18) --> segmental concentric wall thickening of the mid sigmoid colon with a large 8 cm exophytic mass extending into the mesentery and loss of clear tissue plane between the sigmoid colon and the superior bladder dome, 15 mm local regional lymph node adjacent mesentery, small hepatic hypodensities which are too small to characterize, and a large calcified gallstone. - Oncology has been consulted - GI consultation cancelled - Pt is on clear liquids for now - IVF - Zofran PRN - Morphine PRN pain - Clonidine PRN for any elevated BP - Pts assigned [facility] PCP is Dr. Syed Castellon but pt has not been seen by him in the past and generally has not had regular medical care. - In light of the CT scan findings and given his family hx of his sister being diagnosed with colon cancer in her 30's the concern for the patient having colon cancer, possibly stage III. - Discussed the case and CT findings with the pt and his brother, Yosef Trivedi , who is a General Surgeon in [place]. - 08/25 placed consult to colorectal surgery Dr. Bright. Dr. Taylor spoke with Dr. Bright pt underwent flex sig on 08/26. with obvious large mass near obstructing - DVT prophylaxis with Lovenox and SCDs pt underwent LAR on 08/27. pt seen post op. sleeping. 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 spoke with nurse good urine output and vitals stable. Progress Note: Quality VTE Deep Vein Thrombosis/Pulmonary Embolism Present on Admission: No
[2018-08-27] MEDS: ceFAZolin 1 GM Premix Inj 1 GM/50 ML FROZ.PIGGY IV.SIG SCH (22:17)
[2018-08-27] MEDS: Acetaminophen 325 MG Tablet PO PRN (23:20)
[2018-08-28] MEDS: KCL 20 mEq/D5W/NaCl 0.9% Inj 1,000 ML IV.CONT SCH ×4 (03:08→23:27)
[2018-08-28 05:07] LABS: Baso % (Auto) 0.1 % (0.0-2.0); Hematocrit 36.1 % (39.0-51.0); Hemoglobin 11.9 gm/dL (13.0-17.0); Lymph # (Auto) 0.6 th/mm3 (1.0-4.8); Lymph % (Auto) 5.7 % (9.0-44.0); Mean Corpuscular HGB Conc 33.1 % (32.0-36.0); Mean Corpuscular Hemoglobin 28.8 pg (27.0-34.0); Mean Corpuscular Volume 87.1 fL (80.0-100.0); Mean Platelet Volume 7.6 fL (7.0-11.0); Mono # (Auto) 0.9 th/mm3 (0.0-0.9); Mono % (Auto) 8.3 % (0.0-8.0); Neut # (Auto) 9.5 th/mm3 (1.8-7.7); Neut % (Auto) 85.9 % (16.0-70.0); Platelet Count 348 th/mm3 (150-450); Red Blood Count 4.14 mil/mm3 (4.50-5.90); Red Cell Distribution Width 13.8 % (11.6-17.2); White Blood Count 11.1 th/mm3 (4.0-11.0)
[2018-08-28 05:34] LABS: Calcium 7.6 mg/dL (8.5-10.1); Potassium 4.3 meq/L (3.5-5.1)
[2018-08-28] MEDS: ceFAZolin 1 GM Premix Inj 1 GM/50 ML FROZ.PIGGY IV.SIG SCH (06:21)
[2018-08-28] MEDS ORDERED: Pantoprazole Inj 40 MG Vial IV.PUSH SCH (09:00)
--- NOTE | 2018-08-28 09:50 | P.PNIM ---
Subjective Interval history: pain with inspiration. shallow breathing. Physical Exam Vital signs: Last Vital Signs Temp 98.5 F 08/28/18 08:00 Pulse 108 H 08/28/18 09:00 Resp 16 08/28/18 08:00 BP 135/81 08/28/18 08:00 Pulse Ox 97 08/28/18 08:00 Narrative: pain with breathing deep oriented heart reg lung diminished air entry abd binder. drains noted ext no edema Results Labs CBC & Chem 7: 08/28/18 04:22 08/28/18 04:22 Assessment and Plan Assessment (1) Intractable abdominal pain: Code(s): R10.9 - Unspecified abdominal pain Status: Acute (2) Colonic mass: Code(s): K63.9 - Disease of intestine, unspecified Status: Acute Plan Colonic mass Liver nodule - Pt is a 58 y/o male without significant past medical hx. - He presented to the ED at [facility] [place] on [place]/24/18 with complaints of abdominal pain. He states that Thursday he started having some chills, subjective fevers, and abdominal cramping. This continued intermittently over the next two days with some occasional nausea but no vomiting. He got up to go to work this morning but felt worse with increased abd cramping and bloating. He reports that he has been having loose to soft stools for some time. No noted melena or BRBPR. No pain with defecation but he occasionally feels some constipation prior to having a BM but the stools are usually soft. - CT Abd/pelvis (08/24/18) --> segmental concentric wall thickening of the mid sigmoid colon with a large 8 cm exophytic mass extending into the mesentery and loss of clear tissue plane between the sigmoid colon and the superior bladder dome, 15 mm local regional lymph node adjacent mesentery, small hepatic hypodensities which are too small to characterize, and a large calcified gallstone. - Oncology has been consulted - GI consultation cancelled - Pt is on clear liquids for now - IVF - Zofran PRN - Morphine PRN pain - Clonidine PRN for any elevated BP - Pts assigned [facility] PCP is Dr. Syed Castellon but pt has not been seen by him in the past and generally has not had regular medical care. - In light of the CT scan findings and given his family hx of his sister being diagnosed with colon cancer in her 30's the concern for the patient having colon cancer, possibly stage III. - Discussed the case and CT findings with the pt and his brother, Yosef Trivedi , who is a General Surgeon in [place]. - 08/25 placed consult to colorectal surgery Dr. Bright. pt underwent flex sig on 08/26. with obvious large mass near obstructing - DVT prophylaxis with Lovenox and SCDs pt underwent LAR on 08/27. pt seen post op. getting astronaut mission specialist pump, ivf, reglan/ppi. advance diet per CRS discussed oob with RN. PT consult discussed IS with patient. Progress Note: Quality VTE Deep Vein Thrombosis/Pulmonary Embolism Present on Admission: No
--- NOTE | 2018-08-28 10:51 | P.PNCS ---
Subjective Colorectal Surgery Post Op Day #: 1 Interval history: s/p emergent sigmoid resection Objective Result Diagrams: 08/28/18 04:22 08/28/18 04:22 Objective Remarks: Abd: flat, soft, tender Dressing c/d/i POONAM serosanguinous Assessment and Plan - Plan Mobilize sips clears
--- NOTE | 2018-08-28 16:19 | MP ---
cc: Kodak Bright MD DATE OF OPERATION: 08/27/2018 PREOPERATIVE DIAGNOSIS: Obstructing carcinoma of the sigmoid colon. POSTOPERATIVE DIAGNOSIS: 1. Large obstructing carcinoma of the sigmoid colon. 2. Cholelithiasis with chronic cholecystitis. PROCEDURE: 1. Exploratory laparotomy with a proctosigmoidectomy and low pelvic anastomosis. 2. Cholecystectomy. SURGEON: Kodak Bright MD ADVERTISING COPY WRITER: Dr. Steve Cintron. DETAILS OF PROCEDURE: The patient was placed in the supine position. After adequate general anesthesia, his legs were placed in universal stirrups and supported appropriately. The abdomen and perineum were then prepped with Betadine solution and draped in the usual sterile fashion. With Dr. Cintron's assistance, the abdomen was opened through an infraumbilical transverse incision, dividing the rectus muscles with electrocautery. Exploration revealed a very large tumor of the sigmoid colon which is stuck down to the bladder dome. There appeared to be infiltration of at least the parietal peritoneum. Dr. Manrique did the cystoscopy and no evidence of invasion into the bladder was seen. The proximal colon was softly distended, but fairly well-prepped without evidence of other masses or significant amount of feces. The small bowel was run from ligament of Treitz down to the ileocecal valve and 1 loop of bowel was attached to the area of the tumor with very flimsy attachments, which were broken up with sharp dissection. No invasion of the bowel loop was seen. The tumor is extensive mesenteric mass extending down toward the superior hemorrhoidal vessel pedicle. The bowel distal to the mass did appear to be pretty normal. The liver had no palpable masses. The gallbladder was thickened and had a large stone in the fundus of the gallbladder. The stomach and duodenum were normal. Great vessels were of normal caliber and fairly soft. First, the sigmoid colon was mobilized medially by dividing along the white line of Toldt. The left ureteral stent was easily palpable and the ureter preserved. Dissection then proceeded up the left gutter, freeing the left colon off the retroperitoneum up toward and around the splenic flexure. The right retroperitoneal spaces was then opened and the bowel dissected out the presacral fascia. There was some induration and thickening in the presacral space, making dissection somewhat difficult. The pedicle for the hemorrhoidal vessel was identified and divided between Kellys, obtaining hemostasis with Vicryl ties. Dissection then proceeded down into the pelvis, mobilizing the bowel off the presacral fascia toward the pelvic floor. Anteriorly, the peritoneum was opened and the mass dissected off the bladder wall, taking the parietal peritoneum on the bladder dome with the specimen. There did not appear to be any direct invasion of the bladder wall. After freeing up the anterior cul-de-sac. The bowel did appear to be suitable for anastomosis. Therefore, in the proximal rectum, the mesorectum was divided with electrocautery and Vicryl ties as needed for hemostasis. The bowel was then divided between a pursestring suture device and a Diamond clamp. Next, the bowel was sized to reach the rectum without tension and with good blood supply, preserving the left colic vessels. The marginal artery was taken at the appropriate point and the bowel finally divided between a pursestring suture device and a Diamond clamp. The end of the bowel was sized to accept a 33 mm EEA stapling anvil and this was secured with a pursestring suture. Dr. Cintron inserted the stapling instrument transanally under direct vision and brought up to the end of this rectal pouch and the pursestring suture tied. This stapler was then reassembled, with the bowel aligned properly, the stapled closed and fired. Upon withdrawal, 2 complete donuts of tissue was seen. Gentle insufflation did confirm an anti-anastomosis. Next, attention was turned to the gallbladder. There was some intrahepatic part of the fundus of the gallbladder. With traction on the fundus, the gallbladder was dissected free from its intrahepatic bed using electrocautery and sharp dissection. After mobilization out of the hepatic bed, the hepatoduodenal ligament was opened and the cystic duct identified, divided between hemostats and tied proximally with a Vicryl ligature. The cystic artery was similarly divided and ligated with 0 Vicryl tie. The abdomen was then irrigated copiously with normal saline. Adequate hemostasis achieved at all sites. A Geoffrey-Meneses drain was placed down into the pelvis and brought up to a stab wound in the right lower quadrant, secured to the skin with a nylon suture. The transverse incision was then closed anatomically in 2 layers using #1 PDS sutures to reapproximate the respective fascial layers. On-Q catheters were placed into the rectus sheaths on both sides and brought up through subcutaneous tunnels above the transverse incision. Subcutaneous tissue was irrigated copiously and the skin closed with a row surgical bashir. Wound area washed with normal saline and dried, sterile dressing of Telfa and gauze applied. The patient tolerated the procedure quite well and was brought to the recovery room in stable condition. Sponge and needle counts were correct at the end of the procedure. Kodak Bright MD [facility]/ , 02:00 PM , 02:11 PM
[2018-08-28] MEDS: Acetaminophen 325 MG Tablet PO PRN (23:25)
[2018-08-29 04:07] LABS: Baso % (Auto) 0.2 % (0.0-2.0); Hematocrit 32.6 % (39.0-51.0); Hemoglobin 10.9 gm/dL (13.0-17.0); Lymph # (Auto) 0.6 th/mm3 (1.0-4.8); Lymph % (Auto) 4.4 % (9.0-44.0); Mean Corpuscular HGB Conc 33.5 % (32.0-36.0); Mean Corpuscular Hemoglobin 28.9 pg (27.0-34.0); Mean Corpuscular Volume 86.1 fL (80.0-100.0); Mean Platelet Volume 7.5 fL (7.0-11.0); Mono # (Auto) 1.2 th/mm3 (0.0-0.9); Mono % (Auto) 8.4 % (0.0-8.0); Neut # (Auto) 12.4 th/mm3 (1.8-7.7); Platelet Count 354 th/mm3 (150-450); Red Blood Count 3.79 mil/mm3 (4.50-5.90); Red Cell Distribution Width 13.8 % (11.6-17.2); White Blood Count 14.3 th/mm3 (4.0-11.0)
[2018-08-29 04:32] LABS: Anion Gap 5 meq/L (5-15); Blood Urea Nitrogen 8 mg/dL (7-18); Calcium 7.7 mg/dL (8.5-10.1); Carbon Dioxide 28.5 meq/L (21.0-32.0); Chloride 105 meq/L (98-107); Glomerular Filtration Rate Greater Than 89 mL/min (>89); Glucose,Random 160 mg/dL (74-106); Potassium 3.9 meq/L (3.5-5.1); Sodium 138 meq/L (136-145)
[2018-08-29] MEDS: KCL 20 mEq/D5W/NaCl 0.9% Inj 1,000 ML IV.CONT SCH ×2 (08:09→17:25)
[2018-08-29] MEDS: Sod Chloride 0.9% Inj 1,000 ML IV.CONT SCH (09:05)
--- NOTE | 2018-08-29 09:13 | P.PNIM ---
Subjective Interval history: pt having alot of belching/hiccups/nausea overnight. Physical Exam Vital signs: Last Vital Signs Temp 99.7 F H 08/29/18 04:00 Pulse 110 H 08/29/18 05:56 Resp 18 08/29/18 04:00 BP 155/86 H 08/29/18 04:00 Pulse Ox 97 08/29/18 04:00 Narrative: appears nauseated oriented heart reg lung diminished air entry abd binder. drains noted ext no edema Results Labs CBC & Chem 7: 08/29/18 03:27 08/29/18 03:27 Assessment and Plan Assessment (1) Intractable abdominal pain: Code(s): R10.9 - Unspecified abdominal pain Status: Acute (2) Colonic mass: Code(s): K63.9 - Disease of intestine, unspecified Status: Acute Plan Colonic mass Liver nodule - Pt is a 58 y/o male without significant past medical hx. - He presented to the ED at [facility] on 08/24/18 with complaints of abdominal pain. He states that Thursday he started having some chills, subjective fevers, and abdominal cramping. This continued intermittently over the next two days with some occasional nausea but no vomiting. He got up to go to work this morning but felt worse with increased abd cramping and bloating. He reports that he has been having loose to soft stools for some time. No noted melena or BRBPR. No pain with defecation but he occasionally feels some constipation prior to having a BM but the stools are usually soft. - CT Abd/pelvis (08/24/18) --> segmental concentric wall thickening of the mid sigmoid colon with a large 8 cm exophytic mass extending into the mesentery and loss of clear tissue plane between the sigmoid colon and the superior bladder dome, 15 mm local regional lymph node adjacent mesentery, small hepatic hypodensities which are too small to characterize, and a large calcified gallstone. - Oncology has been consulted - GI consultation cancelled - Pt is on clear liquids for now - IVF - Zofran PRN - Morphine PRN pain - Clonidine PRN for any elevated BP - Pts assigned ON LICENSE OF [facility] PCP is Dr. Syed Castellon but pt has not been seen by him in the past and generally has not had regular medical care. - In light of the CT scan findings and given his family hx of his sister being diagnosed with colon cancer in her 30's the concern for the patient having colon cancer, possibly stage III. - Discussed the case and CT findings with the pt and his brother, Yosef Trivedi , who is a General Surgeon in [place]. - 08/25 placed consult to colorectal surgery Dr. Bright. pt underwent flex sig on 08/26. with obvious large mass near obstructing -pt underwent proctosigmoidectomy with low pelvic anastamosis. cholecystectomy on 08/27. - prn zofran/phenergan. increased reglan. cont ivf. diet per CRS. simethicone. -PT/oob -dvt prophylaxis Progress Note: Quality VTE Deep Vein Thrombosis/Pulmonary Embolism Present on Admission: No
[2018-08-29] MEDS: Simethicone 125 MG Chew Tablet PO SCH ×3 (09:49→17:23)
--- NOTE | 2018-08-29 10:55 | P.PNCS ---
Subjective Colorectal Surgery Post Op Day #: 2 Interval history: s/p emergent sigmoid resection Objective Result Diagrams: 08/29/18 03:27 08/29/18 03:27 Objective Remarks: Abd: flat, soft, tender wound clean POONAM serosanguinous Assessment and Plan - Plan Mobilize hold off on clears, pt nauseous
[2018-08-29] MEDS: hydrALAZINE HCl Inj 20 MG/ML Vial IV.PUSH PRN (12:43)
[2018-08-29] MEDS: Acetaminophen 325 MG Tablet PO PRN (15:31)
[2018-08-29] MEDS: Pantoprazole Inj 40 MG Vial IV.PUSH SCH (22:07)
[2018-08-30] MEDS: hydrALAZINE HCl Inj 20 MG/ML Vial IV.PUSH PRN ×2 (00:39→16:11)
--- NOTE | 2018-08-30 10:16 | P.PNIM ---
Subjective Interval history: pt seems overall less nauseated. no vomiting was oob yesterday. had some epigastric pain/fullness no flatus Physical Exam Vital signs: Last Vital Signs Temp 98.9 F 08/30/18 04:00 Pulse 110 H 08/30/18 06:00 Resp 18 08/30/18 04:00 BP 166/87 H 08/30/18 04:00 Pulse Ox 97 08/30/18 04:00 Narrative: oriented heart reg/tachy lung diminished stephanie abd positive bs/lower abd incision approximated. bashir. no redness/drainage torsten drain. abd binder. ext no edema martinez Results Labs CBC & Chem 7: 08/29/18 03:27 08/29/18 03:27 Assessment and Plan Assessment (1) Intractable abdominal pain: Code(s): R10.9 - Unspecified abdominal pain Status: Acute (2) Colonic mass: Code(s): K63.9 - Disease of intestine, unspecified Status: Acute Plan Colonic mass Liver nodule - Pt is a 58 y/o male without significant past medical hx. - He [place] [facility] with complaints of abdominal pain. He states that Thursday he started having some chills, subjective fevers, and abdominal cramping. This continued intermittently over the next two days with some occasional nausea but no vomiting. He got up to go to work this morning but felt worse with increased abd cramping and bloating. He reports that he has been having loose to soft stools for some time. No noted melena or BRBPR. No pain with defecation but he occasionally feels some constipation prior to having a BM but the stools are usually soft. - CT Abd/pelvis (08/24/18) --> segmental concentric wall thickening of the mid sigmoid colon with a large 8 cm exophytic mass extending into the mesentery and loss of clear tissue plane between the sigmoid colon and the superior bladder dome, 15 mm local regional lymph node adjacent mesentery, small hepatic hypodensities which are too small to characterize, and a large calcified gallstone. - Oncology has been consulted - Pts assigned [facility] PCP is Dr. Syed Castellon but pt has not been seen by him in the past and generally has not had regular medical care. - In light of the CT scan findings and given his family hx of his sister being diagnosed with colon cancer in her 30's the concern for the patient having colon cancer, possibly stage III. - Discussed the case and CT findings with the pt and his brother, Yosef Trivedi , who is a General Surgeon in [place]. - 08/25 placed consult to colorectal surgery Dr. Bright. pt underwent flex sig on 08/26. with obvious large mass near obstructing -pt underwent proctosigmoidectomy with low pelvic anastamosis. cholecystectomy on 08/27. - prn zofran/phenergan. increased reglan. cont ivf. diet per CRS. simethicone. -dvt prophylaxis - prn iv hydralazine for bp -get pt oob to chair/IS/ defer crown assembly machine set up mechanic/martinez/diet to CRS. Progress Note: Quality VTE Deep Vein Thrombosis/Pulmonary Embolism Present on Admission: No
--- NOTE | 2018-08-30 10:40 | P.PNONC ---
Subjective Interval history: T-max 100.1 F. Patient awake and alert, has blanket covering his face. He reports upper epigastric pain with burping/hiccuping. RN is at the bedside with medications for this. Objective Vital Signs/Intake & Output: Vital Signs 08/29/18 11:00 08/29/18 12:00 08/29/18 12:06 Temperature 98.5 F Pulse Rate 117 H 118 H 116 H Respiratory Rate 20 Blood Pressure 193/95 H Pulse Oximetry 96 08/29/18 12:50 08/29/18 13:00 08/29/18 14:00 Temperature Pulse Rate 128 H 129 H Respiratory Rate Blood Pressure 178/88 H Pulse Oximetry 08/29/18 14:03 08/29/18 15:00 08/29/18 16:00 Temperature 100.1 F H Pulse Rate 128 H 132 H Respiratory Rate 20 Blood Pressure 183/98 H 132/83 Pulse Oximetry 95 08/29/18 16:28 08/29/18 17:00 08/29/18 17:59 Temperature Pulse Rate 114 H 113 H Respiratory Rate Blood Pressure 123/90 Pulse Oximetry 08/29/18 18:37 08/29/18 19:00 08/29/18 19:45 Temperature 99.7 F H 99.4 F Pulse Rate 109 H 109 H Respiratory Rate 22 Blood Pressure 181/99 H Pulse Oximetry 97 08/29/18 20:00 08/29/18 21:00 08/29/18 22:00 Temperature Pulse Rate 115 H 113 H 114 H Respiratory Rate Blood Pressure Pulse Oximetry 08/29/18 23:00 08/29/18 23:21 08/30/18 00:25 Temperature 100.1 F H Pulse Rate 116 H 116 H 120 H Respiratory Rate 20 Blood Pressure 192/96 H Pulse Oximetry 97 08/30/18 01:00 08/30/18 02:00 08/30/18 03:00 Temperature 99.8 F H Pulse Rate 120 H 118 H 109 H Respiratory Rate 17 Blood Pressure 129/70 Pulse Oximetry 97 08/30/18 04:00 08/30/18 05:00 08/30/18 06:00 Temperature 98.9 F Pulse Rate 112 H 110 H 110 H Respiratory Rate 18 Blood Pressure 166/87 H Pulse Oximetry 97 Intake & Output 08/29/18 08/30/18 08/30/18 18:59 06:59 18:59 Intake Total 3310 / 3310 100 / 100 Output Total 1040 / 1040 1210 / 1210 Balance 2270 / 2270 -1110 / -1110 Weight 93.4 kg Intake: IV 3100 / 3100 100 / 100 D5W/NS + KCL 20 mEq Inj 1,000 2000 / 2000 ML @ 70 mls/hr IV.CONT .[id number] [facility] Rx#:[id number] Ofirmev Inj 1,000 mg In 100 ml 100 / 100 @ 400 mls/hr IV.SIG Q6H PRN Rx# :[id number] Oral 210 / 210 0 / 0 Output: Urine Amount (Catheter) 1000 / 1000 1200 / 1200 Indwelling Urethral Catheter 1000 / 1000 1200 / 1200 Wound Drainage 40 / 40 # 1 Right Lower Abdomen Williams 40 / 40 Result Diagrams: 08/29/18 03:27 08/29/18 03:27 Culture Results: Microbiology 08/24/18 07:25 Aerobic Blood Culture - Final Blood - Peripheral No growth in 5 days Anaerobic Blood Culture - Final No growth in 5 days 08/24/18 07:30 Aerobic Blood Culture - Final Blood - Peripheral No growth in 5 days Anaerobic Blood Culture - Final No growth in 5 days Medications: Active Medications Generic Name Dose Route Start Last Admin Trade Name Freq PRN Reason Stop Dose Admin Albuterol 1 ampul 08/30/18 01:00 08/30/18 08:51 Duoneb Neb (Galen) NEB Not Given Q6HR WHILE AWAKE NEB GALEN Alvimopan 12 mg 08/28/18 09:00 08/29/18 22:06 Entereg PO 09/03/18 21:01 12 mg BID GALEN Administration Furosemide 10 mg 08/29/18 23:00 08/30/18 00:38 Lasix Inj IV.PUSH 10 mg Q12H GALEN Administration Hydralazine HCl 10 mg 08/29/18 12:14 08/30/18 00:39 Apresoline Inj IV.PUSH 10 mg Q3HR PRN Administration sbp > 170 Sodium Chloride 500 mls @ 30 mls/hr 08/27/18 04:00 08/28/18 15:33 Ns Inj IV.SIG Not Given .Q10H G[facility] Potassium Chloride/Dextrose/Sod Cl 1,000 mls @ 70 mls/hr 08/27/18 14:15 08/29 17:25 D5w/Ns + Kcl 20 Meq Inj IV.CONT 100 mls/hr .[id number] GALEN Administration Morphine Sulfate 30 mg in 30 mls @ 0 mls/hr 08/27/18 13:43 08/30/18 04:30 Morphine Inj CASE MANAGEMENT RN 0 mls/hr UNSCH PRN Infusion prn pain 0 MG/HR Metoclopramide HCl 10 mg 08/29/18 09:00 08/30/18 00:40 Reglan Inj IV.PUSH 10 mg Q8H GALEN Administration Protocol Ondansetron HCl 4 mg 08/27/18 13:43 08/29/18 00:52 Zofran Inj IV.PUSH 4 mg Q6H PRN Administration NAUSEA OR VOMITING Pantoprazole Sodium 40 mg 08/29/18 21:00 08/29/18 22:07 Protonix Inj IV.PUSH 40 mg Q12H GALEN Administration Promethazine HCl 25 mg 08/29/18 01:56 08/29/18 15:28 Phenergan PO 25 mg Q4H PRN Administration uncontrolled nausea Sodium Chloride 2 ml 08/27/18 21:00 08/29/18 22:07 Ns Flush IV.FLUSH 2 ml BID GALEN Administration Objective Remarks: GENERAL: Well-nourished, well-developed male patient, in no acute distress. SKIN: Warm and dry. HEAD: Normocephalic. NECK: Supple, trachea midline. CARDIOVASCULAR: Regular rate and rhythm without murmurs. RESPIRATORY: Breath sounds clear, equal bilaterally. No accessory muscle use. GASTROINTESTINAL: Abdomen with abdominal binder in place, wound drain with minimal serosanguineous fluid. EXTREMITIES: No cyanosis, or edema. MUSCULOSKELETAL: Adequate muscle tone. NEUROLOGICAL: Awake, alert, and oriented x3. PSYCHIATRIC: Appropriate mood and affect; insight and judgment normal. Assessment/Plan (1) Intractable abdominal pain Code(s): R10.9 - Unspecified abdominal pain Status: Acute (2) Colonic mass Code(s): K63.9 - Disease of intestine, unspecified Status: Acute - Plan Mr. Trivedi is a 58-year-old gentleman who was hospitalized for fever, chills, abdominal cramping and bloating. He was found to have an abdominal mass which was worrisome for colon cancer. -Family history: Sister diagnosed with colon cancer in her 30s. -CT of the abdomen and pelvis showed segmental concentric wall thickening of the mid sigmoid colon with large 8 cm exophytic mass extending into the mesentery. There was a loss of tissue plane between sigmoid colon and the superior bladder dome. There was a 15 mm lymph node adjacent to the mesentery. There was also a small hepatic hypodensity, which is too small to characterize. This is a colon cancer until proven otherwise. -CT chest did not show any metastatic disease. CEA 16.6. CA 199 66.8. -GI scope showed a tight lesion. Patient underwent surgical resection. Pathology pending. RECOMMENDATIONS: 1. Status post colon resection, day #3. Continues on morphine CASE MANAGEMENT RN pump. Pathology is pending. 2. Further recommendation will depend on final pathology. - Attending Statement The exam, history, and the medical decision-making described in the above note were completed with the assistance of the mid-level provider. I reviewed and agree with the findings presented. I attest that I had a [id number] encounter with the patient on the same day, and personally performed and documented my assessment and findings in the medical record.POD#3. +abdominal pain on CASE MANAGEMENT RN. Path is still pending. This appear to be locally advanced disease and he may need adjuvant chemotherapy.
[2018-08-30] MEDS: Pantoprazole Inj 40 MG Vial IV.PUSH SCH ×2 (10:42→21:33)
--- NOTE | 2018-08-30 22:08 | P.PNCS ---
Subjective Colorectal Surgery Post Op Day #: 3 Interval history: afebrile - temp 100, VSS - HR 110 UO good no flatus Objective Result Diagrams: 08/29/18 03:27 08/29/18 03:27 Objective Remarks: Abd: flat, soft, tender wound clean POONAM serosanguinous stent dc'd On-Q dc'd Assessment and Plan - Plan Imp: adv to clears OOB - resp Rx decr IVF
[2018-08-31] MEDS: KCL 20 mEq/D5W/NaCl 0.9% Inj 1,000 ML IV.CONT SCH ×2 (05:42→20:26)
[2018-08-31] MEDS: Pantoprazole Inj 40 MG Vial IV.PUSH SCH ×2 (09:48→20:28)
[2018-08-31 10:02] LABS: Anion Gap 4 meq/L (5-15); Blood Urea Nitrogen 12 mg/dL (7-18); Calcium 7.7 mg/dL (8.5-10.1); Carbon Dioxide 30.1 meq/L (21.0-32.0); Chloride 104 meq/L (98-107); Glomerular Filtration Rate Greater Than 89 mL/min (>89); Glucose,Random 118 mg/dL (74-106); Potassium 3.7 meq/L (3.5-5.1); Sodium 138 meq/L (136-145)
--- NOTE | 2018-08-31 13:40 | P.PNIM ---
Subjective Interval history: Patient resting in bed reports passing liquid stool earlier today tolerating small amounts of PO intake, reports he does not have an appetitive Physical Exam Vital signs: Last Vital Signs Temp 99.4 F 08/31/18 12:00 Pulse 111 H 08/31/18 13:13 Resp 18 08/31/18 13:13 BP 168/90 H 08/31/18 12:00 Pulse Ox 95 08/31/18 12:00 Narrative: oriented heart reg/tachy lung diminished stephanie abd positive bs/lower abd incision approximated. bashir. no redness/drainage torsten drain. abd binder. ext no edema martinez Results Labs CBC & Chem 7: 08/29/18 03:27 08/31/18 09:00 Assessment and Plan Assessment (1) Intractable abdominal pain: Code(s): R10.9 - Unspecified abdominal pain Status: Acute (2) Colonic mass: Code(s): K63.9 - Disease of intestine, unspecified Status: Acute Plan Colonic mass Liver nodule - Pt is a 58 y/o male without significant past medical hx. - He presented to the ED at [facility] [place] on 08/24/18 with complaints of abdominal pain. He states that Thursday he started having some chills, subjective fevers, and abdominal cramping. This continued intermittently over the next two days with some occasional nausea but no vomiting. He got up to go to work this morning but felt worse with increased abd cramping and bloating. He reports that he has been having loose to soft stools for some time. No noted melena or BRBPR. No pain with defecation but he occasionally feels some constipation prior to having a BM but the stools are usually soft. - CT Abd/pelvis (08/24/18) --> segmental concentric wall thickening of the mid sigmoid colon with a large 8 cm exophytic mass extending into the mesentery and loss of clear tissue plane between the sigmoid colon and the superior bladder dome, 15 mm local regional lymph node adjacent mesentery, small hepatic hypodensities which are too small to characterize, and a large calcified gallstone. - Oncology has been consulted - Pts assigned [facility] PCP is Dr. Syed Castellon but pt has not been seen by him in the past and generally has not had regular medical care. - In light of the CT scan findings and given his family hx of his sister being diagnosed with colon cancer in her 30's the concern for the patient having colon cancer, possibly stage III. - Discussed the case and CT findings with the pt and his brother, oYsef Trivedi , who is a General Surgeon in [place]. - 08/25 placed consult to colorectal surgery Dr. Bright. pt underwent flex sig on 08/26. with obvious large mass near obstructing -pt underwent proctosigmoidectomy with low pelvic anastamosis. cholecystectomy on 08/27. - prn zofran/phenergan. increased reglan. cont ivf. diet per CRS. simethicone. -dvt prophylaxis - prn iv hydralazine for bp -get pt oob to chair/IS/ -defer clothing manager/martinez/diet to CRS. Progress Note: Quality VTE Deep Vein Thrombosis/Pulmonary Embolism Present on Admission: No
[2018-08-31] MEDS: Morphine Inj 30 MG/30 ML PCA.VIAL PCA PRN ×2 (13:42→18:48)
--- NOTE | 2018-08-31 16:21 | P.PNONC ---
Subjective Interval history: T-max 100.9 F. Patient sitting in bed, awake and alert. Continues to have pain in his epigastrium, which he describes as feeling like a rock. Continues on CUSTOMER SUPPLY CHAIN ANALYST pump. Objective Vital Signs/Intake & Output: Vital Signs 08/30/18 17:21 08/30/18 20:00 08/31/18 00:00 Temperature 98.6 F 100.9 F H 98 F Pulse Rate 135 H 121 H 106 H Respiratory Rate 18 19 18 Blood Pressure 157/81 H 141/79 H 153/88 H Pulse Oximetry 95 95 96 08/31/18 08:00 08/31/18 10:12 08/31/18 12:00 Temperature 98.9 F 99.4 F Pulse Rate 112 H 110 H 113 H Respiratory Rate 18 18 18 Blood Pressure 163/96 H 168/90 H Pulse Oximetry 93 L 95 08/31/18 13:13 Temperature Pulse Rate 111 H Respiratory Rate 18 Blood Pressure Pulse Oximetry Intake & Output 08/30/18 08/31/18 08/31/18 18:59 06:59 18:59 Intake Total 0 / 0 1100 / 1100 Output Total 965 / 965 Balance 0 / 0 135 / 135 Weight 98 kg Intake: IV 1100 / 1100 D5W/NS + KCL 20 mEq Inj 1,000 1000 / 1000 ML @ 70 mls/hr IV.CONT .[id number] [facility] Rx#:[id number] Ofirmev Inj 1,000 mg In 100 ml 100 / 100 @ 400 mls/hr IV.SIG Q6H PRN Rx# :[id number] Oral 0 / 0 Output: Urine Amount (Catheter) 950 / 950 Indwelling Urethral Catheter 950 / 950 Wound Drainage 15 # 1 Right Lower Abdomen Williams Other: # Voids 1 # Bowel Movements 1 Result Diagrams: 08/29/18 03:27 08/31/18 09:00 Laboratory Results: Laboratory Results - last 24 hr 08/31/18 09:00 Sodium 138 Potassium 3.7 Chloride 104 Carbon Dioxide 30.1 Anion Gap 4 L BUN 12 Creatinine 0.88 Estimated GFR Greater than 89 Random Glucose 118 H Calcium 7.7 L Culture Results: Microbiology 08/24/18 07:25 Aerobic Blood Culture - Final Blood - Peripheral No growth in 5 days Anaerobic Blood Culture - Final No growth in 5 days 08/24/18 07:30 Aerobic Blood Culture - Final Blood - Peripheral No growth in 5 days Anaerobic Blood Culture - Final No growth in 5 days Medications: Active Medications Generic Name Dose Route Start Last Admin Trade Name Freq PRN Reason Stop Dose Admin Albuterol 1 ampul 08/30/18 01:00 08/31/18 13:13 Duoneb Neb (Galen) NEB 1 ampul Q6HR WHILE AWAKE NEB GALEN Administration Alvimopan 12 mg 08/28/18 09:00 08/31/18 09:48 Entereg PO 09/03/18 21:01 12 mg BID G[facility]EN Administration Furosemide 10 mg 08/29/18 23:00 08/31/18 13:29 Lasix Inj IV.PUSH 10 mg Q12H [facility] Administration Hydralazine HCl 10 mg 08/29/18 12:14 08/30/18 16:11 Apresoline Inj IV.PUSH 10 mg Q3HR PRN Administration sbp > 170 Sodium Chloride 500 mls @ 30 mls/hr 08/27/18 04:00 08/28/18 15:33 Ns Inj IV.SIG Not Given .Q10H [facility] Potassium Chloride/Dextrose/Sod Cl 1,000 mls @ 70 mls/hr 08/27/18 14:15 08/31 05:42 D5w/Ns + Kcl 20 Meq Inj IV.CONT 70 mls/hr .[id number] [facility] Administration Morphine Sulfate 30 mg in 30 mls @ 0 mls/hr 08/27/18 13:43 08/31/18 13:42 Morphine Inj CUSTOMER SUPPLY CHAIN ANALYST 0 mls/hr UNSCH PRN Administration prn pain 0 MG/HR Metoclopramide HCl 10 mg 08/29/18 09:00 08/31/18 09:49 Reglan Inj IV.PUSH 10 mg Q8H [facility] Administration Protocol Ondansetron HCl 4 mg 08/27/18 13:43 08/29/18 00:52 Zofran Inj IV.PUSH 4 mg Q6H PRN Administration NAUSEA OR VOMITING Pantoprazole Sodium 40 mg 08/29/18 21:00 08/31/18 09:48 Protonix Inj IV.PUSH 40 mg Q12H [facility] Administration Promethazine HCl 25 mg 08/29/18 01:56 08/29/18 15:28 Phenergan PO 25 mg Q4H PRN Administration uncontrolled nausea Sodium Chloride 2 ml 08/27/18 21:00 08/31/18 09:49 Ns Flush IV.FLUSH Not Given BID [facility] Objective Remarks: GENERAL: Well-nourished, well-developed male patient, in no acute distress. SKIN: Warm and dry. HEAD: Normocephalic. NECK: Supple, trachea midline. CARDIOVASCULAR: Regular rate and rhythm without murmurs. RESPIRATORY: Breath sounds clear, equal bilaterally. No accessory muscle use. GASTROINTESTINAL: Abdomen with abdominal binder in place and drain. EXTREMITIES: No cyanosis, or edema. MUSCULOSKELETAL: Adequate muscle tone. NEUROLOGICAL: Awake, alert, and oriented x3. PSYCHIATRIC: Appropriate mood and affect; insight and judgment normal. Assessment/Plan (1) Intractable abdominal pain Code(s): R10.9 - Unspecified abdominal pain Status: Acute (2) Colonic mass Code(s): K63.9 - Disease of intestine, unspecified Status: Acute - Plan Mr. Trivedi is a 58-year-old gentleman who was hospitalized for fever, chills, abdominal cramping and bloating. He was found to have an abdominal mass which was worrisome for colon cancer. -Family history: Sister diagnosed with colon cancer in her 30s. -CT of the abdomen and pelvis showed segmental concentric wall thickening of the mid sigmoid colon with large 8 cm exophytic mass extending into the mesentery. There was a loss of tissue plane between sigmoid colon and the superior bladder dome. There was a 15 mm lymph node adjacent to the mesentery. There was also a small hepatic hypodensity, which is too small to characterize. This is a colon cancer until proven otherwise. -CT chest did not show any metastatic disease. CEA 16.6. CA 199 66.8. -GI scope showed a tight lesion. Patient underwent surgical resection. Pathology pending. RECOMMENDATIONS: 1. Status post colon resection, day #4. Continues on morphine CUSTOMER SUPPLY CHAIN ANALYST pump, subjectively reports trying to decrease use. Pathology is pending. 2. Further recommendation will depend on final pathology. - Attending Statement The exam, history, and the medical decision-making described in the above note were completed with the assistance of the mid-level provider. I reviewed and agree with the findings presented. I attest that I had a [id number] encounter with the patient on the same day, and personally performed and documented my assessment and findings in the medical record. Patient still on CUSTOMER SUPPLY CHAIN ANALYST pump. He has flatus. Final pathology still pending. Continue supportive care.
--- NOTE | 2018-08-31 23:16 | P.PNCS ---
Subjective Colorectal Surgery Post Op Day #: 4 Interval history: afebrile, VSS UO good javad some PO Objective Result Diagrams: 08/29/18 03:27 08/31/18 09:00 Objective Remarks: Abd: flat, soft, tender wound clean POONAM serosanguinous, less stent dc'd, urine clear Assessment and Plan - Plan Imp: adv to clears, full prn OOB - resp Rx decr IVF
[2018-08-31] MEDS: Heparin - SQ 10,000 UNITS/ML Vial SQ SCH (23:58)
--- NOTE | 2018-09-01 07:53 | P.PNONC ---
Subjective Interval history: Patient is feeling little better. He is tolerating clear liquid diet. He has no bowel movement yet. He has flatus. He is now afebrile. His pain is controlled. Objective Vital Signs/Intake & Output: Vital Signs 08/31/18 08:00 08/31/18 10:12 08/31/18 12:00 Temperature 98.9 F 99.4 F Pulse Rate 112 H 110 H 113 H Respiratory Rate 18 18 18 Blood Pressure 163/96 H 168/90 H Pulse Oximetry 93 L 95 08/31/18 13:13 08/31/18 14:15 08/31/18 16:00 Temperature 98.1 F Pulse Rate 111 H 118 H Respiratory Rate 18 18 20 Blood Pressure 149/84 H Pulse Oximetry 91 L 08/31/18 19:24 08/31/18 20:00 08/31/18 20:02 Temperature 99.6 F Pulse Rate 116 H 114 H Respiratory Rate 18 17 18 Blood Pressure 159/89 H Pulse Oximetry 93 L 09/01/18 00:00 09/01/18 04:00 Temperature 98.7 F 98.3 F Pulse Rate 115 H 109 H Respiratory Rate 17 17 Blood Pressure 153/75 H 148/88 H Pulse Oximetry 94 L 93 L Intake & Output 08/31/18 09/01/18 09/01/18 18:59 06:59 18:59 Intake Total 1480 / 1480 Output Total 1700 / 1700 2110 / 2110 Balance -1700 / -1700 -630 / -630 Weight 95.7 kg Intake: IV 1000 / 1000 D5W/NS + KCL 20 mEq Inj 1,000 1000 / 1000 ML @ 60 mls/hr IV.CONT .[id number] [facility] Rx#:[id number] Oral 480 / 480 Output: Urine 2100 / 2100 Urine Amount (Catheter) 1700 / 1700 Indwelling Urethral Catheter 1700 / 1700 Wound Drainage # 1 Right Lower Abdomen Williams Result Diagrams: 08/29/18 03:27 08/31/18 09:00 Laboratory Results: Laboratory Results - last 24 hr 08/31/18 09:00 Sodium 138 Potassium 3.7 Chloride 104 Carbon Dioxide 30.1 Anion Gap 4 L BUN 12 Creatinine 0.88 Estimated GFR Greater than 89 Random Glucose 118 H Calcium 7.7 L Culture Results: Microbiology 08/24/18 07:25 Aerobic Blood Culture - Final Blood - Peripheral No growth in 5 days Anaerobic Blood Culture - Final No growth in 5 days 08/24/18 07:30 Aerobic Blood Culture - Final Blood - Peripheral No growth in 5 days Anaerobic Blood Culture - Final No growth in 5 days Medications: Active Medications Generic Name Dose Route Start Last Admin Trade Name Freq PRN Reason Stop Dose Admin Albuterol 1 ampul 08/30/18 01:00 08/31/18 19:59 Duoneb Neb (Galen) NEB 1 ampul Q6HR WHILE AWAKE NEB GALEN Administration Alvimopan 12 mg 08/28/18 09:00 08/31/18 20:28 Entereg PO 09/03/18 21:01 12 mg BID GALEN Administration Furosemide 10 mg 08/29/18 23:00 08/31/18 23:58 Lasix Inj IV.PUSH 10 mg Q12H GALEN Administration Heparin Sodium (Porcine) 5,000 units 08/31/18 23:30 08/31/18 23:58 Heparin Inj SQ 5,000 units Q12HR GALEN Administration Hydralazine HCl 10 mg 08/29/18 12:14 08/30/18 16:11 Apresoline Inj IV.PUSH 10 mg Q3HR PRN Administration sbp > 170 Sodium Chloride 500 mls @ 30 mls/hr 08/27/18 04:00 08/28/18 15:33 Ns Inj IV.SIG Not Given .Q10H GALEN Potassium Chloride/Dextrose/Sod Cl 1,000 mls @ 60 mls/hr 08/27/18 14:15 08/31 20:26 D5w/Ns + Kcl 20 Meq Inj IV.CONT 70 mls/hr .[id number] GALEN Administration Morphine Sulfate 30 mg in 30 mls @ 0 mls/hr 08/27/18 13:43 08/31/18 18:48 Morphine Inj NURSES EDUCATOR 0 mls/hr UNSCH PRN Administration prn pain 0 MG/HR Metoclopramide HCl 10 mg 08/29/18 09:00 09/01/18 01:25 Reglan Inj IV.PUSH 10 mg Q8H GALEN Administration Protocol Ondansetron HCl 4 mg 08/27/18 13:43 08/29/18 00:52 Zofran Inj IV.PUSH 4 mg Q6H PRN Administration NAUSEA OR VOMITING Pantoprazole Sodium 40 mg 08/29/18 21:00 11/27/18 20:28 Protonix Inj IV.PUSH 40 mg Q12H GALEN Administration Promethazine HCl 25 mg 08/29/18 01:56 08/29/18 15:28 Phenergan PO 25 mg Q4H PRN Administration uncontrolled nausea Sodium Chloride 2 ml 08/27/18 21:00 08/31/18 20:28 Ns Flush IV.FLUSH 2 ml BID GALEN Administration Objective Remarks: GENERAL: Well-nourished, well-developed patient. SKIN: Warm and dry. HEAD: Normocephalic. EYES: No scleral icterus. No injection or drainage. NECK: Supple, trachea midline. No JVD or lymphadenopathy. LYMPHATIC: No adenopathy. CARDIOVASCULAR: Regular rate and rhythm without murmurs. RESPIRATORY: Breath sounds equal bilaterally. No accessory muscle use. GASTROINTESTINAL: Abdomen soft, tender around the surgical site. Positive bowel sounds. Nondistended. EXTREMITIES: No cyanosis, or edema. MUSCULOSKELETAL: Adequate muscle tone. NEUROLOGICAL: No obvious focal deficit. Awake, alert, and oriented x3. PSYCHIATRIC: Appropriate mood and affect; insight and judgment normal. Assessment/Plan (1) Intractable abdominal pain Code(s): R10.9 - Unspecified abdominal pain Status: Acute (2) Colonic mass Code(s): K63.9 - Disease of intestine, unspecified Status: Acute - Plan Mr. Trivedi is a 58-year-old gentleman who was hospitalized for fever, chills, abdominal cramping and bloating. He was found to have an abdominal mass which was worrisome for colon cancer. -Family history: Sister diagnosed with colon cancer in her 30s. -CT of the abdomen and pelvis showed segmental concentric wall thickening of the mid sigmoid colon with large 8 cm exophytic mass extending into the mesentery. There was a loss of tissue plane between sigmoid colon and the superior bladder dome. There was a 15 mm lymph node adjacent to the mesentery. There was also a small hepatic hypodensity, which is too small to characterize. This is a colon cancer until proven otherwise. -CT chest did not show any metastatic disease. CEA 16.6. CA 199 66.8. -GI scope showed a tight lesion. Patient underwent surgical resection. Large mass was noted during surgery adhered to the dome of the bladder. Cystoscopy did not show any bladder invasion. Final pathology showed 7 x 5 x 4.5 cm moderately differentiated adenocarcinoma invaded the visceral peritoneum. One tumor deposit was noted. Margin was negative but less than 1 mm from the radial margin. There was tear along the radial margin likely procedure related because the tumor was peeled off from the bladder. 8 pericolonic lymph cells were negative. Pathologic stage T4b N1c MX or stage IIIc. RECOMMENDATIONS: 1. Discussed pathology with patient. We discussed the prognosis and the need for adjuvant chemotherapy. He is going to need port placement for chemotherapy. Plan to give him 6 months of FOLFOX chemotherapy. We will also have pathology do dMMR test. Patient wants me to talk to his brother Grupo who is a surgeon in [place]. 2. Status post colon resection, day #5. Continue supportive care per Dr. Bright. 3. We will need port placement.
[2018-09-01] MEDS: Heparin - SQ 10,000 UNITS/ML Vial SQ SCH ×2 (08:20→21:13)
[2018-09-01] MEDS: Pantoprazole Inj 40 MG Vial IV.PUSH SCH ×2 (08:25→21:15)
--- NOTE | 2018-09-01 10:47 | P.PNIM ---
Subjective Interval history: No new complaints. Pt is tolerating liquid diet +Flatus, no BM Afebrile since 08/30 Physical Exam Vital signs: Last Vital Signs Temp 98.2 F 09/01/18 08:00 Pulse 103 H 09/01/18 09:01 Resp 18 09/01/18 09:01 BP 173/85 H 09/01/18 08:00 Pulse Ox 93 L 09/01/18 08:00 Narrative: General: NAD, AAox3 Cardiac: regular, tachy Chest: Air movement is diminished at the bases bilaterally Abd: +BS, soft, lower abd incision approximated well with bashir. no redness/ drainage. Abd binder. Ext: No edema Results Labs CBC & Chem 7: 08/29/18 03:27 08/31/18 09:00 Imaging Abdomen/Pelvis CT 08/24/18 07:22 CONCLUSION: 1. Segmental concentric wall thickening of the mid sigmoid colon with a large 8 cm exophytic mass extending into the mesentery and loss of clear tissue plane between the sigmoid colon and the superior bladder dome. 2. 15 mm local regional lymph node adjacent mesentery. 3. Small hepatic hypodensities which are too small to characterize. Further characterization with MRI may be helpful for further staging. 4. Large calcified gallstone. 5. Above findings are suspicious for colon carcinoma stage III-B which indicates extraluminal invasion with possible involvement of the bladder and local regional lymphadenopathy. Chest CT 08/25/18 00:00 CONCLUSION: 1. No acute abnormality. 2. No CT evidence to suggest metastatic disease to the chest. Assessment and Plan Assessment (1) Adenocarcinoma of colon: Code(s): C18.9 - Malignant neoplasm of colon, unspecified Status: Acute (2) Intractable abdominal pain: Code(s): R10.9 - Unspecified abdominal pain Status: Acute (3) Colonic mass: Code(s): K63.9 - Disease of intestine, unspecified Status: Acute Plan Colon cancer Liver nodule - Pt is a 58 y/o male without significant past medical hx. - [place] [facility] [place] [facility] with complaints of abdominal pain. He states that Thursday he started having some chills, subjective fevers, and abdominal cramping. This continued intermittently over the next two days with some occasional nausea but no vomiting. He got up to go to work this morning but felt worse with increased abd cramping and bloating. He reports that he has been having loose to soft stools for some time. No noted melena or BRBPR. No pain with defecation but he occasionally feels some constipation prior to having a BM but the stools are usually soft. - CT Abd/pelvis (08/24/18) --> segmental concentric wall thickening of the mid sigmoid colon with a large 8 cm exophytic mass extending into the mesentery and loss of clear tissue plane between the sigmoid colon and the superior bladder dome, 15 mm local regional lymph node adjacent mesentery, small hepatic hypodensities which are too small to characterize, and a large calcified gallstone. - Oncology is following. - Pts assigned [facility] PCP is Dr. Syed Castellon but pt has not been seen by him in the past and generally has not had regular medical care. - GI was initially consulted and pt underwent flex sig on 08/26 with obvious large mass near obstructing. - Colorectal surgery was consulted on 08/25 and pt underwent proctosigmoidectomy with low pelvic anastomosis, cholecystectomy on 08/[address] Bright. - Final pathology from surgery showed 7 x 5 x 4.5 cm moderately differentiated adenocarcinoma invaded the visceral peritoneum. One tumor deposit was noted. Margin was negative but less than 1 mm from the radial margin. There was tear along the radial margin likely procedure related because the tumor was peeled off from the bladder. 8 pericolonic lymph cells were negative. Pathologic stage T4b N1c MX or stage IIIc. - Oncology has seen the pt and discussed the prognosis and the need for adjuvant chemotherapy. Oncology is planning to give him 6 months of FOLFOX chemotherapy. - Pt will need [id number] placement. - Zofran/Phenergan PRN. - Pt is on Reglan 10mng Q8H. - Simethicone. - OOB to chair/IS - TORSTNE drain removed this morning. 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 DVT prophylaxis with Heparin Attending Attestation Patient examined. Assessment and plan formulated with Shannan Roe PA-C. I agree with the above. discussed with Dr Bright and Shawn. parquet floor layer/torsten/martinez stopped monitor bp/pulse. physiological elevation will treat prn. advance diet as tolerated. port prior to dc Progress Note: Quality VTE Deep Vein Thrombosis/Pulmonary Embolism Present on Admission: No
[2018-09-01] MEDS: KCL 20 mEq/D5W/NaCl 0.9% Inj 1,000 ML IV.CONT SCH ×2 (11:10→21:13)
--- NOTE | 2018-09-01 18:57 | P.PNCS ---
Subjective Colorectal Surgery Post Op Day #: 5 Interval history: afebrile, VSS UO good martinez out +BM Objective Result Diagrams: 08/29/18 03:27 08/31/18 09:00 Objective Remarks: Abd: flat, soft, tender wound clean POONAM dc'd Assessment and Plan - Plan Imp: adv to clears, full prn OOB - resp Rx decr IVF path reviewed
--- NOTE | 2018-09-02 07:39 | P.PNCS ---
Subjective Colorectal Surgery Post Op Day #: 6 Interval history: afebrile, VSS UO good +BM Objective Result Diagrams: 08/29/18 03:27 08/31/18 09:00 Objective Remarks: Abd: flat, soft, tender wound clean Assessment and Plan - Plan Imp: adv to clears, full prn OOB decr IVF - hep lock path reviewed DC plans
--- NOTE | 2018-09-02 08:05 | P.PNONC ---
Subjective Interval history: Patient able to eat some clear liquid diet. He had a small bowel movement today. He has flatus. He still has generalized weakness and soreness. Objective Vital Signs/Intake & Output: Vital Signs 09/01/18 09:01 09/01/18 12:00 09/01/18 16:00 Temperature 97.4 F L 99.6 F Pulse Rate 103 H 119 H 117 H Respiratory Rate 18 18 18 Blood Pressure 152/84 H 149/80 H Pulse Oximetry 97 94 L 09/01/18 20:00 09/01/18 23:56 Temperature 99.2 F 98.7 F Pulse Rate 109 H 103 H Respiratory Rate 17 17 Blood Pressure 157/90 H 155/85 H Pulse Oximetry 93 L 93 L Intake & Output 09/01/18 09/02/18 09/02/18 18:59 06:59 18:59 Intake Total 1960 / 1960 1500 / 1500 Output Total 860 / 860 Balance 1100 / 1100 1500 / 1500 Weight 92.8 kg Intake: IV 1000 / 1000 1000 / 1000 D5W/NS + KCL 20 mEq Inj 1,000 1000 / 1000 1000 / 1000 ML @ 60 mls/hr IV.CONT .[id number] GALEN Rx#:[id number] Oral 960 / 960 500 / 500 Output: Urine 500 / 500 Urine Amount (Catheter) 350 / 350 Indwelling Urethral Catheter 350 / 350 Wound Drainage # 1 Right Lower Abdomen Williams Other: # Voids 300 Date of Last Bowel Movement 09/01/18 09/01/18 # Bowel Movements 2 Result Diagrams: 08/29/18 03:27 08/31/18 09:00 Medications: Active Medications Generic Name Dose Route Start Last Admin Trade Name Peterq PRN Reason Stop Dose Admin Albuterol 1 ampul 08/30/18 01:00 09/01/18 21:27 Duoneb Neb (Galen) NEB Not Given Q6HR WHILE AWAKE NEB GALEN Alvimopan 12 mg 08/28/18 09:00 09/01/18 21:14 Entereg PO 09/03/18 21:01 12 mg BID GALEN Administration Heparin Sodium (Porcine) 5,000 units 08/31/18 23:30 09/01/18 21:13 Heparin Inj SQ 5,000 units Q12HR GALEN Administration Potassium Chloride/Dextrose/Sod Cl 1,000 mls @ 60 mls/hr 08/27/18 14:15 09/01 21:13 D5w/Ns + Kcl 20 Meq Inj IV.CONT 70 mls/hr .[id number] GALEN Administration Ondansetron HCl 4 mg 08/27/18 13:43 08/29/18 00:52 Zofran Inj IV.PUSH 4 mg Q6H PRN Administration NAUSEA OR VOMITING Pantoprazole Sodium 40 mg 08/29/18 21:00 09/01/18 21:15 Protonix Inj IV.PUSH 40 mg Q12H GALEN Administration Promethazine HCl 25 mg 08/29/18 01:56 08/29/18 15:28 Phenergan PO 25 mg Q4H PRN Administration uncontrolled nausea Sodium Chloride 2 ml 08/27/18 21:00 09/01/18 21:15 Ns Flush IV.FLUSH 2 ml BID GALEN Administration Objective Remarks: GENERAL: Well-nourished, well-developed patient. SKIN: Warm and dry. HEAD: Normocephalic. EYES: No scleral icterus. No injection or drainage. NECK: Supple, trachea midline. No JVD or lymphadenopathy. LYMPHATIC: No adenopathy. CARDIOVASCULAR: Regular rate and rhythm without murmurs. RESPIRATORY: Breath sounds equal bilaterally. No accessory muscle use. GASTROINTESTINAL: Abdomen soft, soreness around surgical site, nondistended. EXTREMITIES: No cyanosis, or edema. MUSCULOSKELETAL: Adequate muscle tone. NEUROLOGICAL: No obvious focal deficit. Awake, alert, and oriented x3. PSYCHIATRIC: Appropriate mood and affect; insight and judgment normal. Assessment/Plan (1) Intractable abdominal pain Code(s): R10.9 - Unspecified abdominal pain Status: Acute (2) Colonic mass Code(s): K63.9 - Disease of intestine, unspecified Status: Acute - Plan Mr. Trivedi is a 58-year-old gentleman who was hospitalized for fever, chills, abdominal cramping and bloating. He was found to have an abdominal mass which was worrisome for colon cancer. -Family history: Sister diagnosed with colon cancer in her 30s. -CT of the abdomen and pelvis showed segmental concentric wall thickening of the mid sigmoid colon with large 8 cm exophytic mass extending into the mesentery. There was a loss of tissue plane between sigmoid colon and the superior bladder dome. There was a 15 mm lymph node adjacent to the mesentery. There was also a small hepatic hypodensity, which is too small to characterize. This is a colon cancer until proven otherwise. -CT chest did not show any metastatic disease. CEA 16.6. CA 199 66.8. -GI scope showed a tight lesion. Patient underwent surgical resection. Large mass was noted during surgery adhered to the dome of the bladder. Cystoscopy did not show any bladder invasion. Final pathology showed 7 x 5 x 4.5 cm moderately differentiated adenocarcinoma invaded the visceral peritoneum. One tumor deposit was noted. Margin was negative but less than 1 mm from the radial margin. There was tear along the radial margin likely procedure related because the tumor was peeled off from the bladder. 8 pericolonic lymph cells were negative. Pathologic stage T4b N1c MX or stage IIIc. RECOMMENDATIONS: 1. Await dMMR test. He will also need outpatient genetic counseling and testing. 2. Follow-up oncology clinic after discharge. He is going to need adjuvant chemotherapy. 3. He will need port placement but this can be done as outpatient. 4. I have talked to his brother Grupo who is a surgeon in [place] and gave him an update of the pathology and treatment option. 5. Patient can be discharged once cleared by Dr. Bright.
--- NOTE | 2018-09-02 08:51 | P.PNIM ---
Subjective Interval history: Pt still with poor appetite Only eating a bite of eggs this morning. Denies any nausea/vomiting +Flatus One small liquid BM this morning. Physical Exam Vital signs: Last Vital Signs Temp 98.7 F 09/01/18 23:56 Pulse 103 H 09/01/18 23:56 Resp 17 09/01/18 23:56 BP 155/85 H 09/01/18 23:56 Pulse Ox 93 L 09/01/18 23:56 Narrative: General: NAD, AAox3 Cardiac: regular, tachy Chest: Air movement is diminished at the bases bilaterally Abd: +BS, soft, lower abd incision approximated well with bashir. no redness/ drainage. Abd binder in place. Ext: No edema Results Labs CBC & Chem 7: 08/29/18 03:27 08/31/18 09:00 Imaging ITS Impressions Abdomen/Pelvis CT 08/24/18 07:22 CONCLUSION: 1. Segmental concentric wall thickening of the mid sigmoid colon with a large 8 cm exophytic mass extending into the mesentery and loss of clear tissue plane between the sigmoid colon and the superior bladder dome. 2. 15 mm local regional lymph node adjacent mesentery. 3. Small hepatic hypodensities which are too small to characterize. Further characterization with MRI may be helpful for further staging. 4. Large calcified gallstone. 5. Above findings are suspicious for colon carcinoma stage III-B which indicates extraluminal invasion with possible involvement of the bladder and local regional lymphadenopathy. Chest CT 08/25/18 00:00 CONCLUSION: 1. No acute abnormality. 2. No CT evidence to suggest metastatic disease to the chest. Assessment and Plan Assessment (1) Adenocarcinoma of colon: Code(s): C18.9 - Malignant neoplasm of colon, unspecified Status: Acute (2) Intractable abdominal pain: Code(s): R10.9 - Unspecified abdominal pain Status: Acute (3) Colonic mass: Code(s): K63.9 - Disease of intestine, unspecified Status: Acute Plan Colon cancer Liver nodule - Pt is a 58 y/o male without significant past medical hx. - He presented to the [place] [facility] [place] with complaints of abdominal pain. He states that Thursday he started having some chills, subjective fevers, and abdominal cramping. This continued intermittently over the next two days with some occasional nausea but no vomiting. He got up to go to work this morning but felt worse with increased abd cramping and bloating. He reports that he has been having loose to soft stools for some time. No noted melena or BRBPR. No pain with defecation but he occasionally feels some constipation prior to having a BM but the stools are usually soft. - CT Abd/pelvis (08/24/18) --> segmental concentric wall thickening of the mid sigmoid colon with a large 8 cm exophytic mass extending into the mesentery and loss of clear tissue plane between the sigmoid colon and the superior bladder dome, 15 mm local regional lymph node adjacent mesentery, small hepatic hypodensities which are too small to characterize, and a large calcified gallstone. - Oncology is following. - Pts assigned [facility] PCP is Dr. Syed Castellon but pt has not been seen by him in the past and generally has not had regular medical care. - GI was initially consulted and pt underwent flex sig on 08/26 with obvious large mass near obstructing. - Colorectal surgery was consulted on 08/25 and pt underwent proctosigmoidectomy with low pelvic anastomosis, cholecystectomy on 08/[address] Bright. - Final pathology from surgery showed 7 x 5 x 4.5 cm moderately differentiated adenocarcinoma invaded the visceral peritoneum. One tumor deposit was noted. Margin was negative but less than 1 mm from the radial margin. There was tear along the radial margin likely procedure related because the tumor was peeled off from the bladder. 8 pericolonic lymph cells were negative. Pathologic stage T4b N1c MX or stage IIIc. - Oncology has seen the pt and discussed the prognosis and the need for adjuvant chemotherapy. Oncology is planning to give him 6 months of FOLFOX chemotherapy. - Pt will need [id number] placement. Per Oncology notes, this can be done as an outpt - Zofran/Phenergan PRN. - Pt is on Reglan 10mng Q8H. - Simethicone. - OOB to chair/IS - POONAM drain and Wagner removed on 09/01 - Add Ensure to each tray and at bedtime. Need to increase oral intake. - Diet per CRS. DVT prophylaxis with Heparin Progress Note: Quality VTE Deep Vein Thrombosis/Pulmonary Embolism Present on Admission: No
[2018-09-02] MEDS: Heparin - SQ 10,000 UNITS/ML Vial SQ SCH ×2 (08:57→20:27)
[2018-09-02] MEDS: Pantoprazole Inj 40 MG Vial IV.PUSH SCH ×2 (08:58→20:27)
[2018-09-02] MEDS: KCL 20 mEq/D5W/NaCl 0.9% Inj 1,000 ML IV.CONT SCH (10:35)
[2018-09-02] MEDS ORDERED: Mirtazapine 15 MG Tablet PO SCH (21:00)
[2018-09-03 01:44] VITALS: RESP 17
--- NOTE | 2018-09-03 07:42 | P.PNONC ---
Subjective Interval history: Patient is feeling better. He still has pain around the surgical site but improved. He is tolerating clear liquid diet and has small bowel movement. Objective Vital Signs/Intake & Output: Vital Signs 09/02/18 08:00 09/02/18 12:00 09/02/18 16:00 Temperature 98.3 F 99.3 F 98.7 F Pulse Rate 99 H 104 H 100 H Respiratory Rate 17 17 17 Blood Pressure 163/90 H 151/85 H 162/99 H Pulse Oximetry 90 L 93 L 93 L 09/02/18 20:00 09/03/18 00:00 09/03/18 01:43 Temperature 98.5 F 99.8 F H Pulse Rate 101 H 104 H 99 H Respiratory Rate 16 17 Blood Pressure 154/88 H 174/93 H 144/85 H Pulse Oximetry 94 L 92 L Intake & Output 09/02/18 09/03/18 09/03/18 18:59 06:59 18:59 Intake Total 1999 500 / 500 Output Total 994 / 994 Balance 1999 -494 / -494 Weight 93 kg Intake: IV 1000 / 1000 D5W/NS + KCL 20 mEq Inj 1,000 1000 / 1000 ML @ 60 mls/hr IV.CONT .[id number] SADIA Rx#:[id number] Oral 1000 / 1000 500 / 500 Output: Urine 994 / 994 Other: # Voids 4 Date of Last Bowel Movement 09/02/18 # Bowel Movements 3 Result Diagrams: 08/29/18 03:27 08/31/18 09:00 Medications: Active Medications Generic Name Dose Route Start Last Admin Trade Name Peterq PRN Reason Stop Dose Admin Alvimopan 12 mg 08/28/18 09:00 09/02/18 20:27 Entereg PO 09/03/18 21:01 12 mg BID SADIA Administration Clonidine HCl 0.1 mg 09/01/18 14:00 09/02/18 23:37 Catapres PO 0.1 mg Q6H PRN Administration SBP 170 or higher Heparin Sodium (Porcine) 5,000 units 08/31/18 23:30 09/02/18 20:27 Heparin Inj SQ 5,000 units Q12HR SADIA Administration Mirtazapine 15 mg 09/02/18 21:00 09/02/18 20:27 Remeron PO 15 mg HS SADIA Administration Ondansetron HCl 4 mg 08/27/18 13:43 08/29/18 00:52 Zofran Inj IV.PUSH 4 mg Q6H PRN Administration NAUSEA OR VOMITING Pantoprazole Sodium 40 mg 08/29/18 21:00 09/02/18 20:27 Protonix Inj IV.PUSH 40 mg Q12H SADIA Administration Promethazine HCl 25 mg 08/29/18 01:56 08/29/18 15:28 Phenergan PO 25 mg Q4H PRN Administration uncontrolled nausea Sodium Chloride 2 ml 08/27/18 21:00 09/02/18 20:28 Ns Flush IV.FLUSH 2 ml BID SADIA Administration Objective Remarks: GENERAL: Well-nourished, well-developed patient. SKIN: Warm and dry. HEAD: Normocephalic. EYES: No scleral icterus. No injection or drainage. NECK: Supple, trachea midline. No JVD or lymphadenopathy. LYMPHATIC: No adenopathy. CARDIOVASCULAR: Regular rate and rhythm without murmurs. RESPIRATORY: Breath sounds equal bilaterally. No accessory muscle use. GASTROINTESTINAL: Abdomen soft, tender around surgical site, positive bowel sounds. EXTREMITIES: No cyanosis, or edema. MUSCULOSKELETAL: Adequate muscle tone. NEUROLOGICAL: No obvious focal deficit. Awake, alert, and oriented x3. PSYCHIATRIC: Appropriate mood and affect; insight and judgment normal. Assessment/Plan (1) Intractable abdominal pain Code(s): R10.9 - Unspecified abdominal pain Status: Acute (2) Colonic mass Code(s): K63.9 - Disease of intestine, unspecified Status: Acute - Plan Mr. Trivedi is a 58-year-old gentleman who was hospitalized for fever, chills, abdominal cramping and bloating. He was found to have an abdominal mass which was worrisome for colon cancer. -Family history: Sister diagnosed with colon cancer in her 30s. -CT of the abdomen and pelvis showed segmental concentric wall thickening of the mid sigmoid colon with large 8 cm exophytic mass extending into the mesentery. There was a loss of tissue plane between sigmoid colon and the superior bladder dome. There was a 15 mm lymph node adjacent to the mesentery. There was also a small hepatic hypodensity, which is too small to characterize. This is a colon cancer until proven otherwise. -CT chest did not show any metastatic disease. CEA 16.6. CA 199 66.8. -GI scope showed a tight lesion. Patient underwent surgical resection. Large mass was noted during surgery adhered to the dome of the bladder. Cystoscopy did not show any bladder invasion. Final pathology showed 7 x 5 x 4.5 cm moderately differentiated adenocarcinoma invaded the visceral peritoneum. One tumor deposit was noted. Margin was negative but less than 1 mm from the radial margin. There was tear along the radial margin likely procedure related because the tumor was peeled off from the bladder. 8 pericolonic lymph cells were negative. Pathologic stage T4b N1c MX or stage IIIc. RECOMMENDATIONS: 1. Await dMMR test. He will also need outpatient genetic counseling and testing. 2. Follow-up oncology clinic 1-2 weeks after discharge. He is going to need adjuvant chemotherapy when he recovers from surgery. 3. He will need port placement but this can be done as outpatient. 4. Patient can be discharged once cleared by Dr. Bright.
[2018-09-03] MEDS: Heparin - SQ 10,000 UNITS/ML Vial SQ SCH (08:04)
[2018-09-03] MEDS: Pantoprazole Inj 40 MG Vial IV.PUSH SCH (08:04)
--- NOTE | 2018-09-03 10:05 | P.PNIM ---
Subjective Interval history: Pt had 4 BMs overnight. One was more solid the rest have been more liquid No reported melena or BRBPR His appetite is slightly improved but still not eating much. He does not like the food here Drank a few of the Ensures. Physical Exam Vital signs: Last Vital Signs Temp 97.7 F 09/03/18 08:00 Pulse 96 H 09/03/18 08:00 Resp 17 09/03/18 08:00 BP 137/87 09/03/18 08:00 Pulse Ox 92 L 09/03/18 08:00 Narrative: General: NAD, AAox3 Cardiac: regular, tachy Chest: Air movement is diminished at the bases bilaterally Abd: +BS, soft, lower abd incision approximated well with bashir. no redness/ drainage. Abd binder in place. Ext: No edema Results Labs CBC & Chem 7: 08/29/18 03:27 08/31/18 09:00 Imaging Abdomen/Pelvis CT 08/24/18 07:22 CONCLUSION: 1. Segmental concentric wall thickening of the mid sigmoid colon with a large 8 cm exophytic mass extending into the mesentery and loss of clear tissue plane between the sigmoid colon and the superior bladder dome. 2. 15 mm local regional lymph node adjacent mesentery. 3. Small hepatic hypodensities which are too small to characterize. Further characterization with MRI may be helpful for further staging. 4. Large calcified gallstone. 5. Above findings are suspicious for colon carcinoma stage III-B which indicates extraluminal invasion with possible involvement of the bladder and local regional lymphadenopathy. Chest CT 08/25/18 00:00 CONCLUSION: 1. No acute abnormality. 2. No CT evidence to suggest metastatic disease to the chest. Assessment and Plan Assessment (1) Adenocarcinoma of colon: Code(s): C18.9 - Malignant neoplasm of colon, unspecified Status: Acute (2) Intractable abdominal pain: Code(s): R10.9 - Unspecified abdominal pain Status: Acute (3) Colonic mass: Code(s): K63.9 - Disease of intestine, unspecified Status: Acute Plan Colon cancer Liver nodule - Pt is a 58 y/o male without significant past medical hx. - He presented to the ED at [facility] on 08/24/18 with complaints of abdominal pain. He states that Thursday he started having some chills, subjective fevers, and abdominal cramping. This continued intermittently over the next two days with some occasional nausea but no vomiting. He got up to go to work this morning but felt worse with increased abd cramping and bloating. He reports that he has been having loose to soft stools for some time. No noted melena or BRBPR. No pain with defecation but he occasionally feels some constipation prior to having a BM but the stools are usually soft. - CT Abd/pelvis (08/24/18) --> segmental concentric wall thickening of the mid sigmoid colon with a large 8 cm exophytic mass extending into the mesentery and loss of clear tissue plane between the sigmoid colon and the superior bladder dome, 15 mm local regional lymph node adjacent mesentery, small hepatic hypodensities which are too small to characterize, and a large calcified gallstone. - Oncology is following. - Pts assigned [facility] PCP is Dr. Syed Castellon but pt has not been seen by him in the past and generally has not had regular medical care. - GI was initially consulted and pt underwent flex sig on 08/26 with obvious large mass near obstructing. - Colorectal surgery was consulted on 08/25 and pt underwent proctosigmoidectomy with low pelvic anastomosis, cholecystectomy on 08/[address] Bright. - Final pathology from surgery showed 7 x 5 x 4.5 cm moderately differentiated adenocarcinoma invaded the visceral peritoneum. One tumor deposit was noted. Margin was negative but less than 1 mm from the radial margin. There was tear along the radial margin likely procedure related because the tumor was peeled off from the bladder. 8 pericolonic lymph cells were negative. Pathologic stage T4b N1c MX or stage IIIc. - Oncology has seen the pt and discussed the prognosis and the need for adjuvant chemotherapy. Oncology is planning to give him 6 months of FOLFOX chemotherapy. - Pt will need [id number] placement. Per Oncology notes, this can be done as an outpt - Zofran/Phenergan PRN. - Pt is on Reglan 10mng Q8H. - Simethicone. - OOB to chair/IS - POONAM drain and Wagner removed on 09/01 - Ensure with each tray and at bedtime. Need to increase oral intake. Instructed the pt to have his family bring in some food that he may want to eat. He is toelrating regular consistency foods and liquids but still with poor oral intake. - Diet per CRS. DVT prophylaxis with Heparin Progress Note: Quality VTE Deep Vein Thrombosis/Pulmonary Embolism Present on Admission: No
[2018-09-03 12:08] VITALS: PULSE 98
[2018-09-03 16:20] VITALS: BP 132/78; TEMP 97.6; O2SAT 94
--- NOTE | 2018-09-03 16:31 | P.DS ---
DS: Providers Date of admission: 08/24/18 12:02 Primary care physician: No Primary Care Physician Consults: 08/24/18 11:51 Consult to Oncology Routine Consulting Provider: Damien Escobar Preferred Fudge Candy Maker:: Damien Escobar Reason for Consultation: Intra-abdominal mass Notified:: Physician Spoke with:: Dr Escobar Date Notified:: 08/24/18 Time Notified:: 12:17 Ordering Provider: CARLTON 08/25/18 09:05 Consult to Colorectal Surgery Routine Consulting Provider: Kodak Bright Preferred Fudge Candy Maker:: Kodak Bright Patient known to:: Kodak Bright Reason for Consultation: Pt known to Dr Bright. I spoke to him. colorectal cancer. Notified:: Office Spoke with:: Kelly Date Notified:: 08/25/18 Time Notified:: 09:17 Ordering Provider: YOAV 08/26/18 18:26 Consult to Urology Routine Consulting Provider: Neel Manrique Preferred Fudge Candy Maker:: Neel Manrique Reason for Consultation: Dr Manrique or Nehemiah. Pt has near obstructing sigmoid mass with possible bladder invasion. For colectomy on 08/27/18. Ok to see on 08/27/18 for possible intra op Cysto/ureteral caths. OR time pending Notified:: Service Spoke with:: ABBY Date Notified:: 08/26/18 Time Notified:: 18:35 Ordering Provider: MAX 09/01/18 17:21 HUB Only Consult Order Routine Consulting Provider: Lindsey Ku Brief History from admission: Mr. Trivedi is a pleasant 58 y/o male without significant past medical hx. He presented to the ED at [facility] on 08/24/18 with complaints of abdominal pain. He states that Thursday he started having some chills, subjective fevers, and abdominal cramping. This continued intermittently over the next two days with some occasional nausea but no vomiting. He got up to go to work this morning but felt worse with increased abd cramping and bloating. He reports that he has been having loose to soft stools for some time. No noted melena or BRBPR. No pain with defecation but he occasionally feels some constipation prior to having a BM but the stools are usually soft. In the ED pt had a CT Abd/pelvis which revealed segmental concentric wall thickening of the mid sigmoid colon with a large 8 cm exophytic mass extending into the mesentery and loss of clear tissue plane between the sigmoid colon and the superior bladder dome, 15 mm local regional lymph node adjacent mesentery, small hepatic hypodensities which are too small to characterize, and a large calcified gallstone. Pt is being admitted for Oncology and GI evaluation. Past Medical Hx: No known medical problems Past Surgical Hx: None Family Hx: Sister with hx of colon cancer dx in her 30's Social Hx: Denies any alcohol or tobacco use He is exposed to second hand smoke Pt reports that he works for [employer] He has two brothers that are physicians, one is a General Surgeon in [place], another is a Financial Controller in [place]. DS: Diagnosis Discharge Diagnosis (1) Adenocarcinoma of colon: Status: Acute (2) Intractable abdominal pain: Status: Acute (3) Colonic mass: Status: Acute DS: Summary Time Spent with Patient Total time spent providing and/or coordinating discharge services: Quality: VTE Deep Vein Thrombosis/Pulmonary Embolism Present on Admission: No Results Impressions ITS Impressions Abdomen/Pelvis CT 08/24/18 07:22 CONCLUSION: 1. Segmental concentric wall thickening of the mid sigmoid colon with a large 8 cm exophytic mass extending into the mesentery and loss of clear tissue plane between the sigmoid colon and the superior bladder dome. 2. 15 mm local regional lymph node adjacent mesentery. 3. Small hepatic hypodensities which are too small to characterize. Further characterization with MRI may be helpful for further staging. 4. Large calcified gallstone. 5. Above findings are suspicious for colon carcinoma stage III-B which indicates extraluminal invasion with possible involvement of the bladder and local regional lymphadenopathy. Chest CT 08/25/18 00:00 CONCLUSION: 1. No acute abnormality. 2. No CT evidence to suggest metastatic disease to the chest. Discharge Plan Discharge Disposition Patient Disposition: 01 Discharge Home Discharge Condition Condition: Good Discharge Order Discharge Orders: Discharge Order (Routine); Ordered 09/02/18 Ordered By: Kodak Swann for Discharge (Routine); Ordered 09/03/18 Ordered By: Moe Moyer Discharge Details Anticipated Discharge Date: 09/03/18 Physicians Team ED Provider: Wyatt Medel Primary Care Provider: Primary Care Lorna Jansen Attending Provider: German Taylor Other Providers: Damien Escobar ; Kodak Bright ; Neel Manrique ; Kings,Doctors Rxs /Orders / Referrals /Forms Prescriptions: New mirtazapine 15 mg Tablet 15 mg PO HS Qty: 30 RF: 0 pantoprazole [Protonix] 40 mg tablet,delayed release (DR/EC) 40 mg PO DAILY 28 Days Qty: 28 RF: 0 oxycodone 5 mg Tablet 10 mg PO Q4H PRN (Reason: Pain Scale 6 To 10) RF: 0 Referrals: Kodak Bright MD [Physician] - 09/17/18 2:20 pm Primary Care Lorna Jansen [Primary Care Provider] - See Instructions (CALL [phone] AT 8AM THE DAY YOU WOULD LIKE TO BE SEEN [address] [place] [id number]) Discharge Instructions Patient Printed Instructions: Oxycodone, Rapid Release (By mouth), Exploratory Laparoscopy (DC), Exploratory Laparotomy (DC), Colonoscopy (DC) Status ED Status: Left Department
== END 2018-09-03 18:04 | disposition home or self-care (01) ==
LOC: NEPC 06:45 → NEDA 06:45 → N06 15:35 → HCPC 08-27 13:44 → N07 08-30 17:06
PROVIDERS: ADMIT Hospitalist; ATTEND Hospitalist
PROC: COLONOS (2018-08-25 12:32)
DX: I10 Essential (primary) hypertension; K80.10 Calculus of gallbladder with chronic cholecystitis without obstruction; Z77.22 Contact with and (suspected) exposure to environmental tobacco smoke (acute) (chronic); Z80.0 Family history of malignant neoplasm of digestive organs; C19 Malignant neoplasm of rectosigmoid junction; K56.699 Other intestinal obstruction unspecified as to partial versus complete obstruction; N35.911 Unspecified urethral stricture, male, meatal; K59.00 Constipation, unspecified